=== PATIENT | female | born 1995 | race Caucasian/White ===

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

== ENCOUNTER 2017-02-19 09:35 | Emergency (ER) | payer OTHER ==
[2017-02-19 09:59] VITALS: BP 107/68
--- NOTE | 2017-03-01 16:47 | UC ---
Brianna Fitzgerald Nilda, scribed for Tayler Lancaster DO on 02/19/17 at 1212 . Throat Pain/Nasal Srikanth HPI - HPI Summary HPI Summary: This patient is a 21 year old F presenting to [facility] with a chief complaint of constant sore throat since yesterday at 1600. The patient rates the pain 3/10 in severity. Symptoms aggravated by deep inspiration and alleviated by so rose. She reports fever, chills, diffuse abdominal pain, nausea, general body aches, bilateral ear pain, headache, congestion, and rhinorrhea. Patient denies cough, V/D, urinary symptoms (frequency, discharge, dysuria), and dyspnea. She is a nonsmoker. - History of Current Complaint Chief Complaint: UCGeneralIllness Stated Complaint: SORE THROAT FEVER EAR PAIN Hx Obtained From: Patient Hx Last Menstrual Period: 12/28/16 Onset/Duration: Sudden Onset, Lasting Days - Yesterday, Still Present Severity: Mild Pain Intensity: 3 Pain Scale Used: 0-10 Numeric Cough: None Associated Signs & Symptoms: Positive: Nasal Discharge, Fever, Other - chills, diffuse abdominal pain, general body aches, bilateral ear pain, headache, congestion, and rhinorrhea. Patient denies cough, V/D, urinary symptoms ( frequency, discharge, dysuria), and dyspnea.. Negative: Vomiting Related History: Seasonal Allergies - Allergies/Home Medications Allergies/Adverse Reactions: Allergies Allergy/AdvReac Type Severity Reaction Status Date / Time Amoxicillin Allergy Unknown Hives Verified 02/26/17 10:04 Pineapple Allergy See Comment Verified 02/26/17 10:04 PMH/Surg Hx/FS Hx/Imm Hx Other History Of: Negative For: Anticoagulant Therapy - Surgical History Surgical History: None - Family History Known Family History: Positive: Diabetes Family History: NON CONTRIBUTORY - Social History Alcohol Use: None Substance Use Type: None Smoking Status (MU): Never Smoked Tobacco Have You Smoked in the Last Year: No - Immunization History Most Recent Influenza Vaccination: 2015/2015 season Most Recent Pneumonia Vaccination: not indicated Vaccination Up to Date: Yes Review of Systems Constitutional: Fever, Chills ENT: Sore Throat, Ear Ache, Nasal Discharge, Sinus Congestion Respiratory: Other - negative dyspnea, cough Gastrointestinal: Abdominal Pain, Nausea, Other - negative vomiting and diarrhea Genitourinary: Negative, Other - negative urinary symptoms (frequency, abnormal discharge, dysuria) Musculoskeletal: Myalgia Neurological: Headache All Other Systems Reviewed And Are Negative: Yes Physical Exam Triage Information Reviewed: Yes Appearance: Well-Appearing, No Pain Distress, Well-Nourished Vital Signs: Initial Vital Signs Temp 97.7 F 02/19/17 09:51 Pulse 100 02/19/17 09:51 Resp 20 02/19/17 09:51 BP 107/68 02/19/17 09:51 Pulse Ox 100 02/19/17 09:51 Vital Signs Reviewed: Yes Eyes: Positive: Conjunctiva Clear. Negative: Discharge ENT: Positive: Hearing grossly normal, Pharyngeal erythema, Tonsillar swelling - mild, Other: - pale boggy nasal mucosa, serous fluid noted behind TM but TM is otherwise noted; suborbital congestion. Negative: Tonsillar exudate, Trismus , Muffled/hoarse voice Neck exam: Normal Neck: Positive: Supple Respiratory: Positive: Lungs clear, Normal breath sounds, No respiratory distress, No accessory muscle use Cardiovascular: Positive: RRR, No Murmur Musculoskeletal Exam: Normal Neurological: Positive: Alert, Muscle Tone Normal Psychological Exam: Normal Psychological: Positive: Age Appropriate Behavior Skin Exam: Normal Skin: Positive: Other - Warm, Dry, Normal Color Throat Pain/Nasal Course/Dx - Course Course Of Treatment: This patient is a 21 year old F presenting to [facility] with a chief complaint of constant sore throat since yesterday at 1600. The patient rates the pain 3/10 in severity. Symptoms aggravated by deep inspiration and alleviated by so rose. She reports fever, chills, diffuse abdominal pain, nausea, general body aches, bilateral ear pain, headache, congestion, and rhinorrhea. Patient denies cough, V/D, urinary symptoms (frequency, discharge, dysuria), and dyspnea. She is a nonsmoker. Patients medication reviewed this visit. Group A Strep Rapid = negative. Patient is stable and will be discharged with a diagnoses of serous otitis media and pharyngitis. She was given instructions to use Netti Pot and follow up with PCP if necessary. - Differential Dx/Diagnosis Provider Diagnoses: Serous Otitis Media and Pharyngitis Discharge - Discharge Plan Condition: Stable Disposition: HOME Patient Education Materials: Pharyngitis (ED), Serous Otitis Media (ED) Referrals: Lori Paz MD [Primary Care Provider] - If Needed Additional Instructions: TRY USING THE NETTI POT IN THE MORNINGS DISCUSSED. YOU MUST ALWAYS USE CLEAN WATER. The documentation as recorded by the Brianna cordova Nilda accurately reflects the service I personally performed and the decisions made by me, Tayler Lancaster DO.
== END 2017-02-19 12:20 | disposition home or self-care (01) ==
LOC: UCEAST 09:35
DX: J02.9 Acute pharyngitis, unspecified (principal); H66.93 Otitis media, unspecified, bilateral; R09.81 Nasal congestion; R50.9 Fever, unspecified; R10.84 Generalized abdominal pain; M79.1 Myalgia; R51 Headache; Z88.1 Allergy status to other antibiotic agents
CPT/HCPCS: 87651; 99212; G0463

== ENCOUNTER 2017-02-26 09:57 | Emergency (ER) | payer OTHER ==
[2017-02-26 10:04] VITALS: BP 114/58
--- NOTE | 2017-02-26 10:35 | UC ---
Patricia Fitzgerald Rebecca, scribed for Ara Jeronimo MD on 02/26/17 at 1023 . Throat Pain/Nasal Srikanth HPI - HPI Summary HPI Summary: Pt is a 21 y/o F who presents to [facility] c/o sore throat. Pain is currently moderate, ranked 6/10 and characterized as burning. Has been treating with cough drops and gargling and she has not taken anything for pain. Sx aggravated by swallowing and PO intake, alleviated by nothing. Additionally c/o ear pain, cough and nasal congestion. Reports that her cough produces what "tastes like infection." Denies fever, SALAZAR and sinus tenderness. Pt was evaluated on 02/19 for the same sx with a negative strep and was not given Abx. There are no new sx since she was last seen. - History of Current Complaint Chief Complaint: UCRespiratory Stated Complaint: THROAT PAIN Time Seen by Provider: 02/26/17 10:16 Hx Obtained From: Patient Hx Last Menstrual Period: nexplanon Onset/Duration: Still Present Severity: Moderate Pain Intensity: 6 Pain Scale Used: 0-10 Numeric Cough: Other: - "tastes like infection" Associated Signs & Symptoms: Positive: Other - Ear pain, cough and nasal congestion. Negative: Fever - Allergies/Home Medications Allergies/Adverse Reactions: Allergies Allergy/AdvReac Type Severity Reaction Status Date / Time Amoxicillin Allergy Unknown Hives Verified 02/26/17 10:04 Pineapple Allergy See Comment Verified 02/26/17 10:04 PMH/Surg Hx/FS Hx/Imm Hx - Additional Past Medical History Additional PMH: NEGATIVE PMHx: COPD, HTN, DM, Thyroid Disease Previously Healthy: Yes Psychological History: Anxiety Other History Of: Negative For: Anticoagulant Therapy - Surgical History Surgical History: None - Family History Known Family History: Positive: Diabetes, Respiratory Disease - asthma (sister) - Social History Occupation: Unemployed Lives: With Family Alcohol Use: None Substance Use Type: None Smoking Status (MU): Never Smoked Tobacco Have You Smoked in the Last Year: No - Immunization History Most Recent Influenza Vaccination: 2014/2015 season Most Recent Pneumonia Vaccination: not indicated Vaccination Up to Date: Yes Review of Systems Constitutional: Negative Skin: Negative Eyes: Negative ENT: Sore Throat, Ear Ache, Sinus Congestion Respiratory: Cough Cardiovascular: Negative Gastrointestinal: Negative Genitourinary: Negative, Other - nexplanon for contraception with weight gain as a side effect. Motor: Negative Neurovascular: Negative Musculoskeletal: Negative Neurological: Negative Psychological: Negative All Other Systems Reviewed And Are Negative: Yes - Comments Additional Review of Systems Comments: NEGATIVE: Fever, SALAZAR and sinus tenderness Physical Exam Triage Information Reviewed: Yes Appearance: Well-Appearing - mildly congested., Pain Distress - mild, Obese Vital Signs: Initial Vital Signs Temp 97.6 F 02/26/17 10:01 Pulse 78 02/26/17 10:01 Resp 16 02/26/17 10:01 BP 114/58 02/26/17 10:01 Pulse Ox 100 02/26/17 10:01 Vital Signs Reviewed: Yes Eyes: Positive: Conjunctiva Clear ENT: Positive: Pharyngeal erythema, TMs normal. Negative: Tonsillar swelling, Tonsillar exudate Dental Exam: Normal Neck: Positive: Supple, Nontender, No Lymphadenopathy Respiratory: Positive: Lungs clear, Normal breath sounds Cardiovascular: Positive: RRR, No Murmur Musculoskeletal Exam: Normal Neurological Exam: Normal Psychological Exam: Normal Skin Exam: Normal Throat Pain/Nasal Course/Dx - Course Course Of Treatment: pharyngitis--no evidence of bacterial infection. Prednisone given for symptom control. Assessment/Plan: Pt medications reviewed. - Differential Dx/Diagnosis Differential Diagnosis/HQI/PQRI: Laryngitis, Pharyngitis, Sinusitis, Tonsillitis , URI Provider Diagnoses: pharyngitis Discharge - Discharge Plan Condition: Stable Disposition: HOME Prescriptions: predniSONE TAB* [Deltasone TAB*] 20 mg PO BID #10 tab Patient Education Materials: Pharyngitis (ED) Referrals: Lori Paz MD [Primary Care Provider] - Additional Instructions: Clinically, there is no evidence of bacterial infection. Prednisone will help to relieve the swelling and drainage; take one tablet twice daily with food for 5 days. You can use ibuprofen 600mg up to 3 times daily to help with pain, stopping if it is upsetting your stomach. The documentation as recorded by the Patricia cordova Rebecca accurately reflects the service I personally performed and the decisions made by me, Ara Jeronimo MD.
== END 2017-02-26 10:32 | disposition home or self-care (01) ==
LOC: UCEAST 09:57
DX: J02.9 Acute pharyngitis, unspecified (principal); F41.9 Anxiety disorder, unspecified; Z88.3 Allergy status to other anti-infective agents
CPT/HCPCS: 99212; G0463

== ENCOUNTER 2017-05-12 21:56 | Emergency (ER) | payer OTHER ==
[2017-05-12 22:30] LABS: ABS Basophils 0.1 10^3/ul (0-0.2); ABS Eosinophils 0.2 10^3/ul (0-0.6); ABS Lymphocytes 2.8 10^3/ul (1.0-4.8); ABS Monocytes 0.6 10^3/ul (0-0.8); ABS Neutrophils 6.4 10^3/ul (1.5-7.7); ABS Nucleated RBC 0 10^3/ul; Eosinophil % 2.3 % (0-6); Hematocrit 37 % (35-47); Hemoglobin 11.9 g/dl (12.0-16.0); Lymphocyte % 27.6 % (25-47); Mean Corpuscular HGB Conc 32 g/dl (31-36); Mean Corpuscular Hemoglobin 23 pg (27-31); Mean Platelet Volume 8 um3 (7.4-10.4); Nucleated Red Blood Cells % 0; Platelet Count 344 10^3/ul (150-450); Red Blood Count 5.11 10^6/ul (4.0-5.4); Red Cell Distribution Width 19 % (10.5-15)
[2017-05-12 22:35] LABS: Mean Corpuscular Volume 72 fL (80-97)
[2017-05-12 22:45] LABS: EGFR Non-African American 101.1 (>60)
[2017-05-12] MEDS ORDERED: NS 0.9% 1000 ML* 1,000 ML IV ONE (22:53)
[2017-05-13 01:28] LABS: Urine Appearance Cloudy; Urine Blood 3+ (Negative); Urine Color Yellow; Urine Ketones Negative (Negative); Urine Protein 1+(30 mg/dL) (Negative); Urine Urobilinogen Negative (Negative)
--- NOTE | 2017-05-13 01:55 | RAD ---
Indication: RIGHT upper quadrant pain. Comparison: October 06, 2016 CT and November 11, 2015 ultrasound. Technique: RIGHT upper quadrant ultrasound. Report: Appropriate direction flow documented in the portal and hepatic veins. 14.7 cm liver is minimally increased in echogenicity. Negative for focal hepatic lesions. Negative for intrahepatic biliary dilatation. 2.9 mm common bile duct. Adequately distended gallbladder with upper normal 2.8 mm wall is without pathologic finding. Negative for sonographic Rascon's sign. The pancreatic tail is partially obscured due to bowel gas with the visualized pancreas unremarkable. Negative for ascites. 11.2 x 4.6 x 5.6 cm RIGHT kidney is unremarkable. IMPRESSION: 1. Minimally increased hepatic echogenicity consistent with mild fatty infiltration. 2. Negative for gallbladder pathology.
--- NOTE | 2017-05-13 02:00 | RAD ---
Indication: RIGHT pelvic pain. Comparison: October 06, 2016 CT. Technique: Transvaginal pelvic ultrasound. Report: Unremarkable 7.1 x 3.4 x 5.6 cm anteverted uterus with 3.9 mm endometrium. Negative for free pelvic fluid. 3.0 x 1.4 x 4.4 cm RIGHT ovary with documented vascular flow is remarkable for 2 low suspicion partially decompressed cysts measuring up to 0.7 x 0.5 x 0.6 and 0.8 x 0.3 x 0.8 cm most consistent with involuting follicular or hemorrhagic cyst. 3.2 x 1.8 x 2.1 cm LEFT ovary with documented vascular flow is unremarkable. No visualized extra ovarian adnexal region lesions evident. IMPRESSION: No suspicious sonographic abnormality evident. 2 very small involuting follicular or hemorrhagic cyst of the RIGHT ovary noted.
--- NOTE | 2017-05-13 02:32 | ED ---
Abdominal Pain/Female - HPI Summary HPI Summary: 21F presents with chest pain today. it started this morning in the center of her chest and radiated up to her left shoulder. She denies any SOB with this. She states pain was sharp and nothing made it better or worst. She is on nexplanon for control. no history of HTN or DM. no cardiac family history. she does not smoke. two hours prior to arrival chest pain resolved but then develop abdominal pain in pelvic area. She states this is similar to pain had two months ago and nothing was found wrong then. She denies any vaginal discharge. She is currently finishing her period. She denies any dysria, flank pain, urgency, or frequency. the abdominal pain does radiate to lower back. She denies any injury. She denies any loss of bowel or bladder or saddle anaesthesia. She denies any nausea, vomiting, or diarrhea. - History of Current Complaint Chief Complaint: EDAbdPain Stated Complaint: CHEST,ABD & BACK PAIN Time Seen by Provider: 05/12/17 22:06 Hx Last Menstrual Period: nexplanon Pain Intensity: 6 Allergies/Adverse Reactions: Allergies Allergy/AdvReac Type Severity Reaction Status Date / Time Amoxicillin Allergy Unknown Hives Verified 02/26/17 10:04 Pineapple Allergy See Comment Verified 02/26/17 10:04 PMH/Surg Hx/FS Hx/Imm Hx Endocrine/Hematology History: Denies: Hx Anticoagulant Therapy, Hx Blood Disorders, Hx Diabetes, Hx Thyroid Disease Cardiovascular History: Denies: Hx Hypertension Respiratory History: Denies: Hx Asthma, Hx Chronic Obstructive Pulmonary Disease (COPD) GI History: Reports: Hx Gall Bladder Disease - questionable Denies: Hx Crohn's Disease, Hx Diverticulosis, Hx Gastroesophageal Reflux Disease, Hx Hiatal Hernia, Hx Irritable Bowel, Hx Ulcer History: Denies: Hx Kidney Infection, Hx Kidney Stones Musculoskeletal History: Denies: Hx Back Problems Psychiatric History: Reports: Hx Anxiety - panic attacks Infectious Disease History: No Infectious Disease History: Denies: Hx Clostridium Difficile, Hx Hepatitis, Hx Human Immunodeficiency Virus (HIV), Hx of Known/Suspected MRSA, Hx Shingles, Hx Tuberculosis, Hx Known/ Suspected VRE, Hx Known/Suspected VRSA, History Other Infectious Disease, Traveled Outside the [place] in Last 30 Days - Family History Known Family History: Positive: None, Diabetes, Respiratory Disease - asthma ( sister) Negative: Cardiac Disease Family History: NON CONTRIBUTORY - Social History Alcohol Use: None Hx Substance Use: No Substance Use Type: Reports: None Hx Tobacco Use: No Smoking Status (MU): Never Smoked Tobacco Have You Smoked in the Last Year: No Review of Systems Negative: Fever Positive: Chest Pain Negative: Shortness Of Breath Positive: Abdominal Pain. Negative: Vomiting, Diarrhea, Nausea All Other Systems Reviewed And Are Negative: Yes Physical Exam Triage Information Reviewed: Yes Vital Signs On Initial Exam: Initial Vitals Temp Pulse Resp BP Pulse Ox 98 F 82 18 133/70 99 05/12/17 21:59 05/12/17 21:59 05/12/17 21:59 05/12/17 21:59 05/12/17 21:59 Vital Signs Reviewed: Yes Appearance: Positive: Well-Appearing Skin: Positive: Warm, Dry Head/Face: Positive: Normal Head/Face Inspection Eyes: Positive: Normal, Conjunctiva Clear Respiratory/Lung Sounds: Positive: Clear to Auscultation, Breath Sounds Present , Other - tenderness sternum Cardiovascular: Positive: Normal, RRR Abdomen Description: Positive: Soft, Other: - tenderness greatest suprapubic, mild RLQ and RUQ. neg obturator,. Negative: CVA Tenderness (R), CVA Tenderness (L) Bowel Sounds: Positive: Present Musculoskeletal: Positive: Strength/ROM Intact - tenderness lower back right Neurological: Positive: Normal Psychiatric: Positive: Normal - James Coma Scale Coma Scale Total: 15 Diagnostics - Vital Signs Vital Signs Temp Pulse Resp BP Pulse Ox 05/13/17 02:10 74 99 05/13/17 01:00 82 14 93/56 98 05/13/17 00:30 81 16 106/71 99 05/13/17 00:01 84 16 102/82 98 05/13/17 00:00 85 19 98 05/12/17 23:36 93 15 97 05/12/17 22:09 84 18 98 05/12/17 22:04 86 16 98 05/12/17 22:03 133/70 05/12/17 21:59 98 F 82 18 133/70 99 - Laboratory Lab Results: Lab Results 05/12/17 05/12/17 05/12/17 Range/Units 22:16 22:16 22:16 WBC 10.0 (3.5-10.8) 10^3/ul RBC 5.11 (4.0-5.4) 10^6/ul Hgb 11.9 L (12.0-16.0) g/dl Hct 37 (35-47) % MCV 72 L (80-97) fL MCH 23 L (27-31) pg MCHC 32 (31-36) g/dl RDW 19 H (10.5-15) % Plt Count 344 (150-450) 10^3/ul MPV 8 (7.4-10.4) um3 Neut % (Auto) 63.6 (38-83) % Lymph % (Auto) 27.6 (25-47) % [place] % (Auto) 6.0 (1-9) % Eos % (Auto) 2.3 (0-6) % Baso % (Auto) 0.5 (0-2) % Absolute Neuts (auto) 6.4 (1.5-7.7) 10^3/ul Absolute Lymphs (auto) 2.8 (1.0-4.8) 10^3/ul Absolute Monos (auto) 0.6 (0-0.8) 10^3/ul Absolute Eos (auto) 0.2 (0-0.6) 10^3/ul Absolute Basos (auto) 0.1 (0-0.2) 10^3/ul Absolute Nucleated RBC 0 10^3/ul Nucleated RBC % 0 D-Dimer, Quantitative < 200 (Less Than 230) ng/mL Sodium 138 (133-145) mmol/L Potassium 3.9 (3.5-5.0) mmol/L Chloride 103 (101-111) mmol/L Carbon Dioxide 28 (22-32) mmol/L Anion Gap 7 (2-11) mmol/L BUN 11 (6-24) mg/dL Creatinine 0.74 (0.51-0.95) mg/dL Est GFR ( Amer) 130.0 (>60) Est GFR (Non-Af Amer) 101.1 (>60) BUN/Creatinine Ratio 14.9 (8-20) Glucose 107 H (70-100) mg/dL Calcium 9.8 (8.6-10.3) mg/dL Total Bilirubin 0.30 (0.2-1.0) mg/dL AST 11 L (13-39) U/L ALT 13 (7-52) U/L Alkaline Phosphatase 81 (34-104) U/L Troponin I 0.06 H* (<0.04) ng/mL C-React Prot High Sens 2.37 mg/L Total Protein 7.3 (6.4-8.9) g/dL Albumin 4.3 (3.2-5.2) g/dL Globulin 3.0 (2-4) g/dL Albumin/Globulin Ratio 1.4 (1-3) Lipase < 10 L (11.0-82.0) U/L Beta HCG, Quant mIU/mL Urine Color Urine Appearance Urine pH (5-9) Ur Specific [place] (1.010-1.030) Urine Protein (Negative) Urine Ketones (Negative) Urine Blood (Negative) Urine Nitrate (Negative) Urine Bilirubin (Negative) Urine Urobilinogen (Negative) Ur Leukocyte Esterase (Negative) Urine WBC (Auto) (Absent) Urine RBC (Auto) (Absent) Ur Squamous Epith Cells (Absent) Urine Bacteria (Absent) Urine Glucose (Negative) Urine Opiates Screen (None Detect) Ur Barbiturates Screen (None Detect) Ur Phencyclidine Scrn (None Detect) Ur Amphetamines Screen (None Detect) U Benzodiazepines Scrn (None Detect) Urine Cocaine Screen (None Detect) U Cannabinoids Screen (None Detect) 05/12/17 05/13/17 05/13/17 Range/Units 23:32 01:13 01:13 WBC (3.5-10.8) 10^3/ul RBC (4.0-5.4) 10^6/ul Hgb (12.0-16.0) g/dl Hct (35-47) % MCV (80-97) fL MCH (27-31) pg MCHC (31-36) g/dl RDW (10.5-15) % Plt Count (150-450) 10^3/ul MPV (7.4-10.4) um3 Neut % (Auto) (38-83) % Lymph % (Auto) (25-47) % [place] % (Auto) (1-9) % Eos % (Auto) (0-6) % Baso % (Auto) (0-2) % Absolute Neuts (auto) (1.5-7.7) 10^3/ul Absolute Lymphs (auto) (1.0-4.8) 10^3/ul Absolute Monos (auto) (0-0.8) 10^3/ul Absolute Eos (auto) (0-0.6) 10^3/ul Absolute Basos (auto) (0-0.2) 10^3/ul Absolute Nucleated RBC 10^3/ul Nucleated RBC % D-Dimer, Quantitative (Less Than 230) ng/mL Sodium (133-145) mmol/L Potassium (3.5-5.0) mmol/L Chloride (101-111) mmol/L Carbon Dioxide (22-32) mmol/L Anion Gap (2-11) mmol/L BUN (6-24) mg/dL Creatinine (0.51-0.95) mg/dL Est GFR ( Amer) (>60) Est GFR (Non-Af Amer) (>60) BUN/Creatinine Ratio (8-20) Glucose (70-100) mg/dL Calcium (8.6-10.3) mg/dL Total Bilirubin (0.2-1.0) mg/dL AST (13-39) U/L ALT (7-52) U/L Alkaline Phosphatase (34-104) U/L Troponin I 0.00 (<0.04) ng/mL C-React Prot High Sens mg/L Total Protein (6.4-8.9) g/dL Albumin (3.2-5.2) g/dL Globulin (2-4) g/dL Albumin/Globulin Ratio (1-3) Lipase (11.0-82.0) U/L Beta HCG, Quant < 0.60 mIU/mL Urine Color Yellow Urine Appearance Cloudy Urine pH 5.0 (5-9) Ur Specific [place] 1.030 (1.010-1.030) Urine Protein 1+(30 mg/dl) H (Negative) Urine Ketones Negative (Negative) Urine Blood 3+ H (Negative) Urine Nitrate Negative (Negative) Urine Bilirubin Negative (Negative) Urine Urobilinogen Negative (Negative) Ur Leukocyte Esterase 1+ H (Negative) Urine WBC (Auto) 1+(6-10/hpf) H (Absent) Urine RBC (Auto) 1+(3-5/hpf) H (Absent) Ur Squamous Epith Cells Present H (Absent) Urine Bacteria Absent (Absent) Urine Glucose Negative (Negative) Urine Opiates Screen None detected (None Detect) Ur Barbiturates Screen None detected (None Detect) Ur Phencyclidine Scrn None detected (None Detect) Ur Amphetamines Screen None detected (None Detect) U Benzodiazepines Scrn None detected (None Detect) Urine Cocaine Screen None detected (None Detect) U Cannabinoids Screen None detected (None Detect) Result Diagrams: 05/12/17 22:16 05/12/17 22:16 Lab Statement: Any lab studies that have been ordered have been reviewed, and results considered in the medical decision making process. - Radiology chest Xray Interpretation: No Acute Changes Radiology Interpretation Completed By: ED Physician - Ultrasound No standard instances Ultrasound Interpretation: Positive (See Comments) - gallbladder: neg IMPRESSION : No suspicious sonographic abnormality evident. 2 very small involuting follicular or hemorrhagic cyst of the RIGHT ovary noted. Ultrasound Interpretation Completed By: Radiologist - EKG No standard instances Cardiac Rate: NL EKG Rhythm: Sinus Rhythm ST Segment: Normal EKG Interpretation: normal sinus rhythm Abdominal Pain Fem Course/Dx - Course Course Of Treatment: 21F presents with chest pain today. it started this morning in the center of her chest and radiated up to her left shoulder. She denies any SOB with this. She states pain was sharp and nothing made it better or worst. She is on nexplanon for control. no history of HTN or DM. no cardiac family history. she does not smoke. two hours prior to arrival chest pain resolved but then develop abdominal pain in pelvic area. She states this is similar to pain had two months ago and nothing was found wrong then. She denies any vaginal discharge. She is currently finishing her period. She denies any dysria, flank pain, urgency, or frequency. the abdominal pain does radiate to lower back. She denies any injury. She denies any loss of bowel or bladder or saddle anaesthesia. on exam tenderness suprapubic region and RLQ, no rebound. neg obturator. reproducible sternal chest pain. ekg normal first troponin was elevated so discussed with dr sheriff and 2 and 3rd normal so likely falsely elevated. crp and wbc normal so unlikely appendicits. transvaginal u/s shows two small cyst which could be causing pain. patient refused pelvic. urine indeterminated for uti so will wait for culture as is having no symptoms now. before discharge abdomen soft nontender. patient understand and agrees with plan. - Diagnoses Differential Diagnosis: Positive: Appendicitis, Gall Bladder Disease, Ovarian Cyst, Urinary Tract Infection Provider Diagnoses: Abdominal pain, Chest pain, Ovarian cyst Discharge - Discharge Plan Condition: Good Disposition: HOME Patient Education Materials: Ovarian Cyst (ED) Referrals: Lori Paz MD [Primary Care Provider] - Additional Instructions: Follow up with primary about chest pain and abdominal pain in 5 days Take Tylenol or ibuprofen every 6 hours Return to ED if develop any new or worsening symptoms
[2017-05-13 02:54] VITALS: BP 106/71
--- NOTE | 2017-05-13 07:52 | RAD ---
INDICATION: Chest pain. COMPARISON: There are no prior studies available for comparison. TECHNIQUE: Dual-energy PA and lateral views of the chest were obtained. FINDINGS: The heart is within normal limits in size. Mediastinal and hilar contours appear within normal limits. The lungs are clear. No pleural effusion or pneumothorax is seen. IMPRESSION: NO EVIDENCE FOR ACTIVE CARDIOPULMONARY DISEASE.
== END 2017-05-13 02:55 | disposition home or self-care (01) ==
LOC: ED 21:56
DX: N83.209 Unspecified ovarian cyst, unspecified side (principal); R10.9 Unspecified abdominal pain; R07.9 Chest pain, unspecified
CPT/HCPCS: 36415; 71046; 76705; 76830; 80053; 80307; 81003; 81015; 83690; 84484; 84702; 85025; 85379; 86141; 87086; 93005; 99283

== ENCOUNTER → 2017-08-09 08:18 | Emergency (ER) | payer OTHER ==
--- NOTE | 2017-08-09 09:00 | RAD ---
HISTORY: Altered mental status COMPARISONS: None TECHNIQUE: Multiple contiguous axial CT scans were obtained of the head without intravenous contrast. FINDINGS: HEMORRHAGE/INFARCT: There is no hemorrhage or acute infarct. MASSES/SHIFT: There is no mass or shift. EXTRA-AXIAL SPACES: There are no extra-axial fluid collections. SULCI AND VENTRICLES: The sulci and ventricles are normal in size and position for the patient's stated age. CEREBRUM: There are no focal parenchymal abnormalities. BRAINSTEM: There are no focal parenchymal abnormalities. CEREBELLUM: There are no focal parenchymal abnormalities. VESSELS: The vessels are grossly normal. PARANASAL SINUSES: The paranasal sinuses are clear. ORBITS: The orbits are unremarkable. BONES AND SOFT TISSUE: No bone or soft tissue abnormalities are noted. OTHER: None IMPRESSION: NO ACUTE INTRACRANIAL PATHOLOGY.
--- NOTE | 2017-08-09 09:11 | RAD ---
HISTORY: Altered mental status COMPARISONS: May 12, 2017 VIEWS: 1: frontal portable view of the chest at 8:50 AM FINDINGS: LINES AND TUBES: None. CARDIOMEDIASTINAL SILHOUETTE: The cardiomediastinal silhouette is normal for portable technique. PLEURA: The costophrenic angles are sharp. No pleural abnormalities are noted. LUNG PARENCHYMA: The lungs are clear. ABDOMEN: The upper abdomen is clear. There is no subphrenic gas. BONES AND SOFT TISSUES: No bone or soft tissue abnormalities are noted. IMPRESSION: NO ACTIVE CARDIOPULMONARY DISEASE.
[2017-08-09 09:25] LABS: ABS Basophils 0 10^3/ul (0-0.2); ABS Eosinophils 0.1 10^3/ul (0-0.6); ABS Lymphocytes 1.8 10^3/ul (1.0-4.8); ABS Monocytes 0.5 10^3/ul (0-0.8); ABS Neutrophils 4.8 10^3/ul (1.5-7.7); ABS Nucleated RBC 0 10^3/ul; Eosinophil % 1.9 % (0-6); Hematocrit 37 % (35-47); Hemoglobin 12.4 g/dl (12.0-16.0); Lymphocyte % 24.3 % (25-47); Mean Corpuscular HGB Conc 33 g/dl (31-36); Mean Corpuscular Hemoglobin 25 pg (27-31); Mean Corpuscular Volume 75 fL (80-97); Mean Platelet Volume 8.8 um3 (7.4-10.4); Nucleated Red Blood Cells % 0; Platelet Count 300 10^3/ul (150-450); Red Blood Count 4.96 10^6/ul (4.0-5.4); Red Cell Distribution Width 18 % (10.5-15); White Blood Count 7.2 10^3/ul (3.5-10.8)
[2017-08-09 09:33] LABS: Urine Appearance Cloudy; Urine Blood Negative (Negative); Urine Color Yellow; Urine Ketones Negative (Negative); Urine Protein 1+(30 mg/dL) (Negative); Urine Specific Gravity 1.024 (1.010-1.030); Urine Urobilinogen Negative (Negative)
[2017-08-09 09:39] LABS: EGFR Non-African American 119.5 (>60)
[2017-08-09 12:10] VITALS: BP 128/79
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
== END | disposition home or self-care (01) ==
LOC: ED 08:18
DX: F63.81 Intermittent explosive disorder (principal); F41.0 Panic disorder [episodic paroxysmal anxiety]; Z88.0 Allergy status to penicillin
CPT/HCPCS: 36415; 70450; 71045; 80053; 80307; 80320; 80329; 81003; 81015; 82550; 83735; 84443; 85025; 87086; 99284; G0480

== ENCOUNTER 2017-10-27 13:50 | Emergency (ER) | payer SELFPAY ==
[2017-10-27 14:23] VITALS: BP 120/73
--- NOTE | 2017-10-27 14:27 | UC ---
Back Pain HPI - HPI Summary HPI Summary: 21 yo female presents with right flank pain getting progressively worse over the last 2 weeks. Says the pain started near her bladder and RLQ and gradually progressed to her right flank alone. She denies dysuria, hematuria, frequency, SOB, chest pain, abdominal pain, n/v/d/c, or injury to her back. She has had a UTI in the past and says she never had any real symptoms at those time either. No hx of kidney stone - History of Current Complaint Chief Complaint: UCBackPain Stated Complaint: BACK PAIN Hx Obtained From: Patient Hx Last Menstrual Period: nexplanon Onset/Duration: Gradual Onset Timing: Constant Severity Initially: Mild Severity Currently: Moderate Pain Intensity: 7 Pain Scale Used: 0-10 Numeric - Allergies/Home Medications Allergies/Adverse Reactions: Allergies Allergy/AdvReac Type Severity Reaction Status Date / Time amoxicillin Allergy Hives Verified 10/27/17 14:15 pineapple Allergy See Comment Verified 10/27/17 14:15 Home Medications: Home Medications Etonogestrel [Nexplanon] 68 mg IMPLANT DAILY 10/27/17 [History Confirmed ] Naproxen Sodium [Aleve] 220 mg PO Q8HR PRN 10/27/17 [History Confirmed 10/27/17] PMH/Surg Hx/FS Hx/Imm Hx - Additional Past Medical History Additional PMH: Ovarian cysts Previously Healthy: Yes Other History Of: Negative For: Anticoagulant Therapy - Surgical History Surgical History: None - Family History Known Family History: Positive: None, Diabetes, Respiratory Disease - asthma ( sister) Negative: Cardiac Disease Family History: NON CONTRIBUTORY - Social History Occupation: Student Lives: With Family Alcohol Use: None Substance Use Type: None Smoking Status (MU): Never Smoked Tobacco Have You Smoked in the Last Year: No - Immunization History Most Recent Influenza Vaccination: 2014/2015 season Most Recent Pneumonia Vaccination: not indicated Vaccination Up to Date: Yes Review of Systems Constitutional: Negative Respiratory: Negative Cardiovascular: Negative Gastrointestinal: Negative Genitourinary: Negative Neurovascular: Negative Musculoskeletal: Other: - Right flank pain Neurological: Negative Psychological: Negative All Other Systems Reviewed And Are Negative: Yes Physical Exam - Summary Physical Exam Summary: GENERAL: NAD. WDWN. No pain distress. SKIN: No rashes, sores, lesions, or open wounds. NECK: Supple. FROM. Nontender. No lymphadenopathy. CHEST: CTAB. No r/r/w. No accessory muscle use. Breathing comfortably and in no distress. CV: RRR. Without m/r/g. Pulses intact. Brisk cap refill. ABDOMEN: Moderate right CVA tenderness. Soft. NTTP. No distention or guarding. No organomegaly. Bowel sounds present MSK: Spine FROM - mild right flank pain with flexion. B/L LEs FROM and 5/5 symmetric strength. NEURO: Alert. CN II-XII grossly intact. Sensations intact B/L LEs L3-S1. PSYCH: Age appropriate behavior. Triage Information Reviewed: Yes Vital Signs: Initial Vital Signs Temp 98.6 F 10/27/17 14:16 Pulse 82 10/27/17 14:16 Resp 16 10/27/17 14:16 BP 120/73 10/27/17 14:16 Pulse Ox 99 10/27/17 14:16 Laboratory Tests 10/27/17 14:42 POC Urine Color Yellow POC Urine Clarity Cloudy POC Urine pH 6.5 POC Ur Specif [place] 1.015 POC Urine Protein Negative POC Ur Glucose (UA) Negative POC Urine Ketones Negative POC Urine Blood Trace-intact A POC Urine Nitrite Negative POC Urine Bilirubin Negative POC Urine Urobilinogen 0.2 POC U Leukocyte Esteras 2+ A Back Pain Course/Dx - Course Course Of Treatment: Suspect UTI given UA results. Will treat with cipro and call with urine results. - Differential Dx/Diagnosis Provider Diagnoses: UTI Discharge - Sign-Out/Discharge Documenting (check all that apply): Discharge/Admit/Transfer - Discharge Plan Condition: Stable Disposition: HOME Prescriptions: Ciprofloxacin TAB* [Cipro 250 MG Tab*] 250 mg PO BID #14 tab Patient Education Materials: Urinary Tract Infection in Women (ED) Referrals: Lori Paz MD [Primary Care Provider] - Additional Instructions: If you develop a fever, shortness of breath, chest pain, new or worsening symptoms - please call your PCP or go to the ED. - Billing Disposition and Condition Condition: STABLE Disposition: Home
[2017-10-27] MEDS ORDERED: Ketorolac INJ* 30 MG/ML 1 ML VIAL IM ONE (14:48)
--- NOTE | 2017-10-29 19:38 | UC ---
- Progress Note Progress Note: 10/29/2017 Pt Dx w/ UTI Rx Ciprofloxacin PO x 7 days Urine culture: negative Call back patient and let her know the urine culture result. If feeling better she can stop ABx, otherwise continue taking ABx Ethel Fair PA-C Discharge - Sign-Out/Discharge Documenting (check all that apply): Discharge/Admit/Transfer - D/c home - Discharge Plan Condition: Stable Disposition: HOME Prescriptions: Ciprofloxacin TAB* [Cipro 250 MG Tab*] 250 mg PO BID #14 tab Patient Education Materials: Urinary Tract Infection in Women (ED) Referrals: Lori Paz MD [Primary Care Provider] - Additional Instructions: If you develop a fever, shortness of breath, chest pain, new or worsening symptoms - please call your PCP or go to the ED. - Billing Disposition and Condition Condition: STABLE Disposition: Home
== END 2017-10-27 15:01 | disposition home or self-care (01) ==
LOC: UCEAST 13:50
DX: N39.0 Urinary tract infection, site not specified (principal); Z87.440 Personal history of urinary (tract) infections; Z88.0 Allergy status to penicillin; Z83.3 Family history of diabetes mellitus; Z82.5 Family history of asthma and other chronic lower respiratory diseases
CPT/HCPCS: 81003; 87086; 96372; 99212; G0463; J1885

== ENCOUNTER 2017-12-07 00:40 | Emergency (ER) | payer SELFPAY ==
[2017-12-07] MEDS ORDERED: diPHENhydraMINE IV* 50 MG/ML 1 ml VIAL (BENADRYL) IV ONE (02:02)
[2017-12-07] MEDS ORDERED: NS 0.9% 1000 ML* 1,000 ML IV ONE (02:02)
[2017-12-07] MEDS ORDERED: PROCHLORPERAZINE INJ 5 MG/ML 2 ML VIAL IV ONE (02:03)
[2017-12-07 02:04] LABS: ABS Basophils 0.1 10^3/ul (0-0.2); ABS Eosinophils 0.2 10^3/ul (0-0.6); ABS Lymphocytes 2.1 10^3/ul (1.0-4.8); ABS Monocytes 0.6 10^3/ul (0-0.8); ABS Neutrophils 5.9 10^3/ul (1.5-7.7); ABS Nucleated RBC 0 10^3/ul; Eosinophil % 2.1 % (0-6); Hematocrit 40 % (35-47); Hemoglobin 13.2 g/dl (12.0-16.0); Lymphocyte % 23.7 % (25-47); Mean Corpuscular HGB Conc 33 g/dl (31-36); Mean Corpuscular Hemoglobin 26 pg (27-31); Mean Corpuscular Volume 78 fL (80-97); Mean Platelet Volume 8.8 um3 (7.4-10.4); Nucleated Red Blood Cells % 0.1; Platelet Count 259 10^3/ul (150-450); Red Blood Count 5.12 10^6/ul (4.00-5.40); Red Cell Distribution Width 17 % (10.5-15); White Blood Count 8.8 10^3/ul (3.5-10.8)
--- NOTE | 2017-12-07 02:09 | ED ---
Abdominal Pain/Female - HPI Summary HPI Summary: Patient presents with nausea 3 days and vomiting with acute, sharp abdominal pain starting today. She reports her pain is both in her right upper quadrant and right lower quadrant areas. Pain and nausea were triggered by eating earlier today however she admits she did not vomit until an hour later. Denies diarrhea. She denies diarrhea, fever, dysuria, vaginal irritation or discharge, flank pain. Feels "dehydrated". Reports she came in by ambulance because she felt like she was going to pass out at home - lightheaded with standing. Her last period was 2 weeks ago. She has an Implanon in her left arm which she's had for 2 years. Admits she has some level of spotting intermittently since Implanon was placed. She does have a history of ovarian cysts - pain today does not feel the same. Had intercouse last night which was not painful. - History of Current Complaint Chief Complaint: EDAbdPain Stated Complaint: ABD PAIN Time Seen by Provider: 12/07/17 01:18 Hx Obtained From: Patient Hx Last Menstrual Period: nexplanon Pain Intensity: 7 Allergies/Adverse Reactions: Allergies Allergy/AdvReac Type Severity Reaction Status Date / Time amoxicillin Allergy Hives Verified 10/27/17 14:15 pineapple Allergy See Comment Verified 10/27/17 14:15 PMH/Surg Hx/FS Hx/Imm Hx Previously Healthy: Yes Endocrine/Hematology History: Denies: Hx Anticoagulant Therapy, Hx Blood Disorders, Hx Diabetes, Hx Thyroid Disease Cardiovascular History: Denies: Hx Hypertension Respiratory History: Denies: Hx Asthma, Hx Chronic Obstructive Pulmonary Disease (COPD) GI History: Reports: Hx Gall Bladder Disease - questionable Denies: Hx Crohn's Disease, Hx Diverticulosis, Hx Gastroesophageal Reflux Disease, Hx Hiatal Hernia, Hx Irritable Bowel, Hx Ulcer History: Reports: Other Problems/Disorders - ovarian cyst Denies: Hx Kidney Infection, Hx Kidney Stones Musculoskeletal History: Denies: Hx Back Problems Psychiatric History: Reports: Hx Anxiety - panic attacks, Hx of Violent Episodes Against Others Denies: Hx Eating Disorder - Immunization History Immunizations Up to Date: Yes Infectious Disease History: No Infectious Disease History: Denies: Hx Clostridium Difficile, Hx Hepatitis, Hx Human Immunodeficiency Virus (HIV), Hx of Known/Suspected MRSA, Hx Shingles, Hx Tuberculosis, Hx Known/ Suspected VRE, Hx Known/Suspected VRSA, History Other Infectious Disease, Traveled Outside the [place] in Last 30 Days - Family History Known Family History: Positive: Diabetes, Respiratory Disease - asthma (sister) Negative: Cardiac Disease - Social History Occupation: Employed Full-time - [employer] Lives: With Family Alcohol Use: Rare Substance Use Type: Reports: Marijuana Hx Tobacco Use: No Smoking Status (MU): Never Smoked Tobacco Have You Smoked in the Last Year: No Review of Systems Positive: Chills. Negative: Fever, Fatigue Negative: Sore Throat Cardiovascular: Negative Respiratory: Negative Positive: Abdominal Pain, Vomiting, Nausea. Negative: Diarrhea Genitourinary: Negative Negative: burning, dysuria, discharge, frequency, flank pain, hematuria, incontinence, pain, urgency Musculoskeletal: Negative Skin: Negative Positive: Headache - "Rt sided migraine" Psychological: Normal All Other Systems Reviewed And Are Negative: Yes Physical Exam Triage Information Reviewed: Yes Vital Signs On Initial Exam: Initial Vitals Temp Pulse Resp BP Pulse Ox 98.3 F 81 18 115/73 99 12/07/17 00:51 12/07/17 00:51 12/07/17 00:51 12/07/17 00:51 12/07/17 00:51 Vital Signs Reviewed: Yes Appearance: Positive: Well-Appearing, No Pain Distress, Well-Nourished Skin: Positive: Warm, Skin Color Reflects Adequate Perfusion, Dry - no ecchymosis over ab Head/Face: Positive: Normal Head/Face Inspection Eyes: Positive: EOMI, Conjunctiva Clear - anicteric sclera ENT: Positive: Hearing grossly normal, Pharynx normal - mucosa moist Respiratory/Lung Sounds: Positive: Breath Sounds Present. Negative: Rales, Rhonchi, Wheezes Cardiovascular: Positive: Normal, RRR, S1, S2. Negative: Murmur, Rub Abdomen Description: Positive: No Organomegaly, Soft, Other: - acute RLQ TTP - no rebounding; mild RUQ. Negative: CVA Tenderness (R), CVA Tenderness (L), Distended, Guarding, Hernia @ Bowel Sounds: Positive: Present Pelvic Exam: Positive: External Exam Normal, Speculum Exam Normal, Bimanual Exam Normal, No Cerv. Motion Tender, No Masses, Discharge - blood tinged mucous d/c, Other. Negative: Lesions, Mass Musculoskeletal: Positive: Normal, Strength/ROM Intact Neurological: Positive: Normal, Sensory/Motor Intact, Alert, Oriented to Person Place, Time, CN Intact II-III Psychiatric: Positive: Normal Diagnostics - Vital Signs Vital Signs Temp Pulse Resp BP Pulse Ox 12/07/17 00:51 98.3 F 81 18 115/73 99 - Laboratory Lab Results: Lab Results 12/07/17 Range/Units 01:31 Lactic Acid 0.8 (0.5-2.0) mmol/L Result Diagrams: 12/07/17 01:31 12/07/17 01:31 Lab Statement: Any lab studies that have been ordered have been reviewed, and results considered in the medical decision making process. Abdominal Pain Fem Course/Dx - Course Course Of Treatment: Patient presents with 3 days of nausea and abrupt onset of right lower quadrant pain with vomiting today. She reports is associated with eating. Also admits to some right upper quadrant pain however she is primarily tender in the right lower quadrant, mild right upper quadrant pain. Currently her nausea is controlled. Does feel she could be dehydrated with her symptoms of lightheadedness. Also reports a right-sided "migraine" headache. Discussed workup for right lower quadrant pain with patient and administration of IV fluids plus Compazine to reduce lightheadedness and headache. Labs thus far are unremarkable for acute infection or inflammation. With her physical exam and history of present illness, CT abdomen and pelvis was ordered. If necessary , ultrasound may be ordered to better assess for ovarian torsion however pelvic exam was unremarkable. Vitals up in stable. Patient signed out to Dr. Chapman and stable condition with pain controlled. - Diagnoses Provider Diagnoses: Right lower quadrant pain Discharge - Sign-Out/Discharge Documenting (check all that apply): Sign-Out Patient Signing out patient TO: Lester Chapman - Discharge Plan Condition: Stable - Billing Disposition and Condition Condition: STABLE
[2017-12-07] MEDS ORDERED: diPHENhydraMINE IV* 50 MG/ML 1 ml VIAL (BENADRYL) ONE (03:29)
[2017-12-07 03:50] LABS: Urine Appearance Cloudy; Urine Blood 2+ (Negative); Urine Color Yellow; Urine Ketones Negative (Negative); Urine Protein Negative (Negative); Urine Red Blood Cell 3+(>10/hpf) (Absent); Urine Specific Gravity 1.009 (1.010-1.030); Urine Urobilinogen Negative (Negative); Urine White Blood Cell 1+(6-10/hpf) (Absent)
[2017-12-07] MEDS ORDERED: Iohexol 300* (CONTRAST) 10 ML SDV IV ONE (05:03)
--- NOTE | 2017-12-07 07:15 | ED ---
Progress - Progress Note Progress Note: Received sign out from Dr. Chapman, awaiting Abd/Pelvlis CT. - Results/Orders Results/Orders: Abd Pelvis CT: 1. Normal appendix and gastrointestinal system. 2. Possible hepatic steatosis. ED Physician has reviewed this report Re-Evaluation - Re-Evaluation First Eval Re-Evaluation Time: 08:40 Change: Improved Comment: Pt is feeling better and wants to go home. Course/Dx - Course Course Of Treatment: Pt was pending Abd/Pelvis CT scan, results noted by ED Physician. Pt will be discharged home and advised to follow up with their PCP within 3 days. - Diagnoses Provider Diagnoses: Abdominal pain Discharge - Sign-Out/Discharge Documenting (check all that apply): Patient Departure - Discharge, Receiving Sign-Out Receiving patient FROM: Lester Chapman - Discharge Plan Condition: Stable Disposition: HOME Patient Education Materials: Acute Abdominal Pain (ED) Referrals: Lori Paz MD [Primary Care Provider] - 3 Days Additional Instructions: RETURN TO THE EMERGENCY DEPARTMENT FOR CHANGING OR WORSENING SYMPTOMS - Billing Disposition and Condition Condition: STABLE Disposition: Home
--- NOTE | 2017-12-07 07:25 | ED ---
Progress - Progress Note Progress Note: This is art Rebolledo documenting for Dr. Lester Chapman MD. Received sign out from Janel Shepard, awaiting Abd/Pel CT. CT has still not been completed and pt is being signed out to Dr. Artem Lopez. Re-Evaluation - Re-Evaluation First Eval Re-Evaluation Time: 08:40 Change: Improved Comment: Pt is feeling better and wants to go home. Course/Dx - Course Course Of Treatment: Patient presents with 3 days of nausea and abrupt onset of right lower quadrant pain with vomiting today. She reports is associated with eating. Also admits to some right upper quadrant pain however she is primarily tender in the right lower quadrant, mild right upper quadrant pain. Currently her nausea is controlled. Does feel she could be dehydrated with her symptoms of lightheadedness. Also reports a right-sided "migraine" headache. Discussed workup for right lower quadrant pain with patient and administration of IV fluids plus Compazine to reduce lightheadedness and headache. Labs thus far are unremarkable for acute infection or inflammation. With her physical exam and history of present illness, CT abdomen and pelvis was ordered. If necessary , ultrasound may be ordered to better assess for ovarian torsion however pelvic exam was unremarkable. Vitals up in stable. Patient signed out to Dr. Chapman and stable condition with pain controlled. Received sign out from Janel Shepard, awaiting Abd/Pel CT. CT has still not been completed and pt is being signed out to Dr. Artem Lopez. - Diagnoses Provider Diagnoses: Abdominal pain Discharge - Sign-Out/Discharge Documenting (check all that apply): Patient Departure - sign out Signing out patient TO: Artem Lopez Receiving patient FROM: Janel Shepard - Discharge Plan Condition: Stable Disposition: HOME Patient Education Materials: Acute Abdominal Pain (ED) Referrals: Lori Paz MD [Primary Care Provider] - 3 Days Additional Instructions: RETURN TO THE EMERGENCY DEPARTMENT FOR CHANGING OR WORSENING SYMPTOMS - Billing Disposition and Condition Condition: STABLE Disposition: Home
--- NOTE | 2017-12-07 08:38 | RAD ---
CLINICAL HISTORY: Right lower quadrant pain with nausea and vomiting COMPARISON: Similar CT examination October 06, 2016 TECHNIQUE: Contrast enhanced CT examination of the abdomen and pelvis from the lung bases through the initial tuberosities. The patient received 100 mL Omnipaque 300 intravenously prior to imaging.The patient received oral contrast as well prior to imaging. FINDINGS: VISUALIZED LUNG BASES: The visualized lung bases are grossly clear. There is no pleural effusion. ABDOMEN AND PELVIS: The liver is homogenously hypodense relative to the spleen. There are no focal suspicious liver lesions or intrahepatic biliary duct dilatation. The spleen, pancreas and adrenal glands are grossly normal in appearance. The gallbladder is normal. The kidneys are normal in appearance without focal mass, calcification or signs of hydronephrosis. The oral contrast has progressed as far as the distal small bowel which somewhat limits evaluation of the terminal ileum and colon. The small and large bowel are not distended. The patient's normal appendix is identified in the right lower quadrant with gas partially filling the lumen (coronal image 58 and axial image 52). There are scattered mesenteric lymph nodes visible, but none are pathologically enlarged. The pelvic viscera is normal in appearance. The abdominal aorta and iliac arteries are normal in course and diameter. There are no sinister bone lesions. IMPRESSION: 1. Normal appendix and gastrointestinal system. 2. Possible hepatic steatosis.
[2017-12-07 08:53] VITALS: BP 95/73
--- NOTE | 2017-12-08 16:52 | PN ---
Progress Note - Progress Note Date of Service: 12/07/17 Note: Called patient at 5 PM to make aware of positive Gardnerella She is prescribed metronidazole 500 mg twice a day 7 days
== END 2017-12-07 08:57 | disposition home or self-care (01) ==
LOC: ED 00:40
DX: R10.31 Right lower quadrant pain (principal); R10.11 Right upper quadrant pain; R11.2 Nausea with vomiting, unspecified; Z88.0 Allergy status to penicillin; Z91.018 Allergy to other foods; Z83.3 Family history of diabetes mellitus; Z82.5 Family history of asthma and other chronic lower respiratory diseases
CPT/HCPCS: 36415; 74177; 80053; 81003; 81015; 83605; 83690; 83735; 84702; 85025; 86140; 86703; 87086; 87480; 87491; 87510; 87591; 87661; 96361; 96374; 96375; 99282; J0780; J1200; Q9967

== ENCOUNTER 2018-07-22 10:25 | Emergency (ER) | payer OTHER ==
--- OUTSIDE RECORDS SUMMARY | 2018-07-22 10:34 | XMS REPORT | Continuity of Care Document ---
:1995 External Reference #:[id number] Author Name Jossue Schroeder M.D. Address [address] [place] [address] Care Team Providers Name Role Phone Lori Paz MD Primary Care Physician Unavailable Payers Date Identification Numbers Payment Provider Subscriber Policy Number: [id number] [facility] Emi Moreno PayID: [id number] [address] [address] [place] [address] Advance Directives Description No Information Available Problems Description No Information Family History Date Family Member(s) Observation Comments Father A&W Mother Drug Addiction First Brother A&W Second Brother A&W First Sister A&W Second Sister A&W Paternal Grandfather Diabetes Paternal Grandmother A&W Maternal Grandfather Unknown Maternal Grandmother Unknown Social History Type Date Description Comments Sex Unknown Education Highest Level Completed Is Ged Marital Status Single Lives With Boyfriend and boyfriend's parents Pets 2 cats Environmental Hazards Low Lead Risk Environmental Hazards Not exposed to any environmental hazards Cigarette Use Does Not Smoke Cigarettes ETOH Use Does Not Drink Alcohol Recreational Drug Use Does Not Use Drugs Tobacco Use Start: Unknown Patient has never smoked Smoking Status Reviewed: 07/20/18 Patient has never smoked Seat Belt/Car Seat Always uses seat belt Currently Active Patient is currently sexually active Contraceptive Methods Nexplanon STD's No STD History Allergies, Adverse Reactions, Alerts Date Description Reaction Status Severity Comments 12/20/2014 Amoxicillin Active 12/20/2014 Pineapple Active Medications Medication Date Status Form Strength Qnty SIG Indications Ordering Provider Nexplanon Active Implant 68mg Jossue Schroeder M.D. Diflucan Hx Tablets 100mg 6tabs 2 by N76.2 Aminata 017 - mouth Jump, 1st dose ANP-C 017 and then 1 by mouth every day x 4 No Active Hx Unknown Medications 016 - 016 Ibuprofen Hx Tablets 600mg 30tabs 1 by Danisha 016 - mouth q6 Petersen, hours as CNM 016 needed for pain Zatean-PN Dha Hx Capsules 27-0.6-0.4- 30caps 1 by Danisha 015 - 300mg mouth Petersen, every CNM 016 day No Active Hx Dvorah Medications 015 - [place], Nayla 015 Immunizations CPT Code Status Date Vaccine Lot # [id number] Given 04/12/2015 Tetnus, Diptheria Toxoids And Acellular Pertussis, [id number] PT > 7Yrs Old Vital Signs Date Vital Result Comment 07/20/2018 2:51pm BP Systolic 126 mmHg BP Diastolic 76 mmHg Height 62 inches 5'2" Weight 204.00 lb BMI (Body Mass Index) 37.3 kg/m2 Last Menstrual Period [id number] 1 Parity 1 01/20/2018 1:05pm BP Systolic 122 mmHg BP Diastolic 82 mmHg Height 62 inches 5'2" Weight 195.00 lb BMI (Body Mass Index) 35.7 kg/m2 Last Menstrual Period [id number] 1 Parity 1 08/04/2016 1:53pm BP Systolic 110 mmHg BP Diastolic 72 mmHg Height 62 inches 5'2" Weight 205.00 lb BMI (Body Mass Index) 37.5 kg/m2 Last Menstrual Period [id number] 1 Parity 1 11/05/2015 1:26pm BP Systolic 122 mmHg BP Diastolic 66 mmHg Height 62 inches 5'2" Weight 182.00 lb BMI (Body Mass Index) 33.3 kg/m2 1 Parity 1 08/06/2015 12:42pm BP Systolic 106 mmHg BP Diastolic 64 mmHg Height 62 inches 5'2" Weight 161.00 lb BMI (Body Mass Index) 29.4 kg/m2 Last Menstrual Period [id number] 1 Parity 1 08/01/2015 8:11am BP Systolic 126 mmHg BP Diastolic 74 mmHg Height 62 inches 5'2" Weight 164.00 lb BMI (Body Mass Index) 30.0 kg/m2 Last Menstrual Period 0654175 1 Parity 1 12/21/2014 1:31pm BP Systolic 106 mmHg BP Diastolic 60 mmHg Height 62 inches 5'2" Weight 164.00 lb BMI (Body Mass Index) 30.0 kg/m2 Last Menstrual Period 6912526 1 Parity 0 Results Test Date Facility Test Result H/L Range Note Urinalysis Profile 06/22/2015 [facility] [place] [address] [phone] Urine Appearance Turbid N Urine Specific [place] 1.014 N 1.010-1.030 Urine pH 6.0 N 5-9 Urine Urobilinogen Negative N Negative Urine Ketones Negative N Negative Urine Protein 2+(100 mg/dL) Abnormal Negative Urine Leukocytes 3+ Abnormal Negative Urine Blood 1+ Abnormal Negative Urine Nitrite Negative N Negative Urine Bilirubin Negative N Negative Urine Glucose Negative N Negative Urine White Blood Cell 3+(>20/hpf) Abnormal Absent Urine Red Blood Cell 1+(3-5/hpf) Abnormal Absent Urine Bacteria Absent N Absent Urine Squamous Epithelial Cell Present Abnormal Absent Urine Culture And 06/22/2015 [facility] Urine Culture SEE RESULT 1 [place] [address] BELOW [phone] Laboratory test 06/15/2015 [facility] Group B Strep SEE RESULT 2 [place] [address] Culture Screen BELOW [phone] Urinalysis Profile 06/04/2015 [facility] [place] [address] [phone] Urine Appearance Cloudy N Urine Specific [place] 1.011 N 1.010-1.030 Urine pH 7.0 N 5-9 Urine Urobilinogen Negative N Negative Urine Ketones Trace Abnormal Negative Urine Protein Negative N Negative Urine Leukocytes 3+ Abnormal Negative Urine Blood 1+ Abnormal Negative Urine Nitrite Negative N Negative Urine Bilirubin Negative N Negative Urine Glucose Negative N Negative Urine White Blood Cell 3+(>20/hpf) Abnormal Absent Urine Red Blood Cell 3+(>10/hpf) Abnormal Absent Urine Bacteria 2+ Abnormal Absent Urine Squamous Epithelial Cell Present Abnormal Absent Urine Culture And 06/04/2015 [facility] Urine Culture SEE RESULT 3 [place] [address] BELOW [phone] Urine Drug SCR ED 05/18/2015 [facility] Amphetamine Ur None N None & [place] [address] Screen Detected Detect [phone] Barbiturates Urine Screen None Detected N None Detect Benzodiazepine Urine Screen None Detected N None Detect Urine Cannabinoids Screen None Detected N None Detect Urine Cocaine Screen None Detected N None Detect Urine Opiates Screen None Detected N None Detect Urine Phencyclidine Screen None Detected N None Detect 4 CBC With No 05/18/2015 [facility] White Blood 9.9 10^3/uL N 3.5-10.8 [place] [address] Count [phone] Red Blood Count 4.07 10^6/uL N 4.0-5.4 Hemoglobin 11.3 g/dL Low 12.0-16.0 Hematocrit 35 % N 35-47 Mean Corpuscular Volume 86 fL N 80-97 Mean Corpuscular Hemoglobin 28 pg N 27-31 Mean Corpuscular HGB Conc 32 g/dL N 31-36 Red Cell Distribution Width 14 % N 10.5-15 Platelet Count 298 10^3/uL N 150-450 Mean Platelet Volume 9 um3 N 7.4-10.4 Laboratory test 04/12/2015 [facility] Glucose 1 HR 95 mg/dL N 70-160 [place] [address] Post Prandial [phone] CBC With No Diff 04/12/2015 [facility] White Blood 12.0 High 4.8-10.8 [place] [address] Count 10^3/uL [phone] Red Blood Count 3.94 10^6/uL Low 4.0-5.4 Hemoglobin 11.7 g/dL Low 12.0-16.0 Hematocrit 37 % N 35-47 Mean Corpuscular Volume 94 fL N 80-97 Mean Corpuscular Hemoglobin 30 pg N 27-31 Mean Corpuscular HGB Conc 32 g/dL N 31-36 Red Cell Distribution Width 14 % N 10.5-15 Platelet Count 286 10^3/uL N 150-450 Mean Platelet Volume 9 um3 N 7.4-10.4 Laboratory test 04/12/2015 [facility] Rubella Screen Equiv[place] [address] IU/mL [phone] GC/Chlamydia 04/12/2015 [facility] Chlamydia Negative N [place] [address] trachomatis Rna [phone] Neisseria gonorrhoeae (GC) Rna Negative N Negative Serum Integrated Screen Part 2 [place] 01/16/2015 [facility] Interpretation SEE BELOW 5 Risk For Ontd <1:5000 Age Risk Down Syndrome 1:1200 LITZY Down Syndrome Risk <1:5000 <1:270 LITZY Trisomy 18 Risk <1:5000 <1:100 Calculated Gestational Age 15.9 Afp,Serum 31.1 ng/mL Afp Mom 1.04 6 HCG,Serum 41.6 IU/mL HCG Mom 1.21 Estriol,Free 1.20 ng/mL Estriol Mom 1.57 Inhibin A,Dimeric 97 pg/mL Inhibin A Mom 0.59 Luis-A 511 ng/mL Luis-A Mom 0.92 7 Referring Physician Name JOSE LUIS Referring Physician Phone [phone] Referring Physician Npi [id number] Specimen # From Part 1 [id number] Date Of Collection Date Maternal Weight 164 lbs Est'd Date Of Delivery 07/04/2015 Mother's Ethnic Origin Insulin Depend Diabetic NO Repeat Specimen NOT GIVEN Number Of Fetuses 1 HX Of Neural Tube Defects NO 8 Laboratory test finding 12/22/2014 [facility] Varicella-Zoster AB (Igg) 1.73 9 Serum Integrated SCRN 12/22/2014 [facility] Comment SEE BELOW 10 Part 1 OR Referring Physician Name JOSE LUISCAMRYN 11 Referring Physician Phone [phone] Referring Physician Npi [id number] Date Of 1995 14 Collection Date 12/22/2014 15 Maternal Weight 164 lbs 16 Est'd Date Of Delivery 07/04/2015 17 SWETHA Determined By ULTRASOUND 18 Mother's Ethnic Origin 19 Number Of Fetuses 1 20 Insulin Depend Diabetic NO 21 Repeat Specimen NOT GIVEN 22 HX Of Neural Tube Defects NO 23 Prev Down Synd NO 24 Donor Egg NO 25 Donor Age:Egg Retrieval NOT GIVEN 26 Toxoplasma AB(Igg,M),Eia 12/22/2014 [facility] Toxoplasma Igg AB <0.91 27 Toxoplasma Igm AB NEGATIVE PNL No 12/21/2014 [facility] Rubella Equivocal IU/[place] [address] Screen [phone] Hemoglobin A1c 5.6 % N Less than 6.0 28 Hepatitis B Surface Ag Nonreactive N Nonreactive 29 RPR 12/21/2014 [facility] Pediatric/[place] [address] [phone] RPR Nonreactive N Nonreactive RPR Titer TNP N Syphilis IgG TNP N Nonreactive CBC With No 12/21/2014 [facility] White Blood 8.0 10^3/uL N 4.8-10.8 [place] [address] Count [phone] Red Blood Count 4.43 10^6/uL N 4.0-5.4 Hemoglobin 13.1 g/dL N 12.0-16.0 Hematocrit 41 % N 35-47 Mean Corpuscular Volume 92 fL N 80-97 Mean Corpuscular Hemoglobin 30 pg N 27-31 Mean Corpuscular HGB Conc 32 g/dL N 31-36 Red Cell Distribution Width 15 % N 10.5-15 Platelet Count 264 10^3/uL N 150-450 Mean Platelet Volume 9 um3 N 7.4-10.4 Type And Screen 12/21/2014 [facility] Patient Blood [place] [address] [phone] Antibody Screen NEGATIVE N HIV 1/2 AB 12/21/2014 [facility] HIV 1 2 Nonreactive N Nonreactive 30 [place] [address] Antibody [phone] Urine Culture 12/21/2014 [facility] Urine SEE RESULT 31 [place] [address] Culture BELOW Sensitivities [phone] 1 SEE RESULT BELOW Name: MEI MORENO : [address]: Cinthya Petersen [facility] Acct: [id number] Unit: [id number] AGE: 19 Location: [facility] Re06/22/15 SEX: F Status: DEP REF SPEC: [id number] JOLYNN: 06/22/[address]: Cinthya Petersen [facility] REQ: [id number] RECD: 06/22/15 STATUS: KATHRYN FARR DR: Keshav Lane III, MD _ SOURCE: URINE SPDESC: ORDERED: Urine Culture QUERIES: Urine Source: Clean Catch Procedure Result Reported Site Urine Culture Final 06/23/15- 907 ML No Growth (<1,000 CFU/mL) * ML - MAIN LAB ([facility]) . END OF REPORT * ML=Testing performed at Main Lab DEPARTMENT OF PATHOLOGY, [address] [place] [address] Kulwant Sierra M.D. Director [facility] # [id number] 2 SEE RESULT BELOW Name: EMI MORENO : [address]: Cinthya Petersen CNM Acct: [id number] Unit: [id number] AGE: 19 Location: [facility] Re06/15/15 SEX: F Status: REG REF SPEC: [id number] JOLYNN: 06/15/15-[address]: Cinthya Petersen sImael REQ: [id number] RECD: 06/18/15 STATUS: COMP _ SOURCE: CER/VAG/RE SPDESC: ORDERED: Grp B Strp Scrn QUERIES: Is Patient Penicillin Allergic? Y Is patient penicillin allergic and/or sensitivities needed? Y Provider Requisition # [id number]_ Procedure Result Reported Site Group B Strep Culture Screen Final 06/20/15- 1034 ML Group B Strep Screen Negative * ML - MAIN LAB ([facility]) . END OF REPORT * ML=Testing performed at Main Lab DEPARTMENT OF PATHOLOGY, [address] [place] [address] Kulwant Sierra M.D. Director [facility] # [id number] 3 SEE RESULT BELOW Name: EMI MORENO : [address]: Malou Andino [facility] Acct: [id number] Unit: [id number] AGE: 19 Location: [facility] Re06/04/15 SEX: F Status: DEP REF SPEC: [id number] JOLYNN: 06/04/[address]: Malou Andino [facility] REQ: [id number] RECD: 06/04/15 STATUS: KATHRYN FARR DR: Keshav Lane III, MD _ S[facility] ORDERED: Urine Culture Procedure Result Reported Site Urine Culture Final 06/05/15- 1732 ML No growth of clinically significant organisms * ML - MAIN LAB ([facility]) . END OF REPORT * ML=Testing performed at Main Lab DEPARTMENT OF PATHOLOGY, [address] [place] [address] Kulwant Sierra M.D. Director [facility] # [id number] 4 The urine specimen was tested at the listed cutoffs: Drug class test level (ng/mL) Amphetamines 500 Barbituates 200 Benzodiazepine metabolites 200 Cocaine metabolites 150 Cannabinoids 50 Opiates 300 Pcp 25 This is a screening procedure. Positive results are not confirmed. Specimen was received without chain of custody. Results should be used for medical purposes only. 5 SCREEN NEGATIVE FOR OPEN NTD, DOWN SYNDROME AND TRISOMY 18. 6 Reference Range: <2.50 IDD <1.90 TWINS <4.00 TWINS IDD <3.50 TRIPLETS <4.50 7 The Serum Integrated Screen combines LUIS-A in the first trimester with AFP, unconjugated estriol, intact hCG and Inhibin A in the second trimester. This provides a useful screening test for detection of open neural tube defects, Down syndrome and Trisomy 18. It should be noted that normal results can never guarantee the of a normal baby and that 2 to 3 percent of newborns have some type of physical or mental defect, many of which are undetectable through any known diagnostic technique. Interpretation reviewed by: Feliciano Reich, Ph.D., [facility] This is a screening test, not a diagnostic test. This risk assessment is based on demographic data provided by the ordering physician. Please notify the laboratory promptly if any data are incorrect. If you have questions concerning this report: For clinical consultation, call ; For technical questions, call ext [phone]; For recalculations, fax to . This test was developed and its performance characteristics have been determined by [facility]. Performance characteristics refer to the analytical performance of the test. 8 For additional information, please refer to http://education.[employer].Comr.se/faq/FAQ93 (This link is being provided for informational/educational purposes only.) 9 INDEX VALUE RESULTS INTERPRETATION ------- < OR=0.90 NEGATIVE NO VZV IGG ANTIBODY DETECTED 0.91 - 1.09 EQUIVOCAL PRESENCE OF ABSENCE OF VZV IGG ANTIBODY CANNOT BE DISCERNED > OR=1.10 POSITIVE VZV IGG ANTIBODY DETECTED A positive result indicates that the patient has antibody to VZV but does not diffenentiate between infection (active or past) and vaccination. The clinical diagnosis must be interpreted in conjunction with the clinical signs and symptoms of the patient. This assay reliably measures immunity due to previous infection but may not be sensitive enough to detect antibodies induced by vaccination. Thus, a negative result in a vaccinated individual does not necessarily indicate susceptibility to VZV infection. 10 Thank you for submitting this patients Part 1 specimen. Please submit her Part 2 specimen between 01/10/2015-03/06/2015 (15.0 and 22.9 weeks gestation) with 01/10/2015-01/23/2015 (15.0 and 16.9 weeks gestation) being optimal. When submitting Part 2, please include the following Specimen # from Part 1: [id number] If you have questions concerning this report: For clinical consultation, call ; For technical questions, call ext [phone]; For recalculations, fax to . This test was developed and its performance characteristics have been determined by [facility]. Performance characteristics refer to the analytical performance of the test. For additional information, please refer to http://PerceptiMed.myThings/faq/FAQ91 (This link is being provided for informational/educational purposes only.) 11 For additional information, please refer to http://PerceptiMed.myThings/faq/FAQ91 (This link is being provided for informational/educational purposes only.) 12 For additional information, please refer to http://PerceptiMed.myThings/faq/FAQ91 (This link is being provided for informational/educational purposes only.) 13 For additional information, please refer to http://PerceptiMed.myThings/faq/FAQ91 (This link is being provided for informational/educational purposes only.) 14 For additional information, please refer to http://PerceptiMed.myThings/faq/FAQ91 (This link is being provided for informational/educational purposes only.) 15 For additional information, please refer to http://iApp4Me/faq/FAQ91 (This link is being provided for informational/educational purposes only.) 16 For additional information, please refer to http://PerceptiMedYoujia/faq/FAQ91 (This link is being provided for informational/educational purposes only.) 17 For additional information, please refer to [employer]://iApp4Me/[employer] Wineryq/FAQ91 (This link is being provided for informational/educational purposes only.) 18 For additional information, please refer to [employer]://iApp4Me/[employer] Win[employer]q/FAQ91 (This link is being provided for informational/educational purposes only.) 19 For additional information, please refer to http://iApp4Me/Wayger/[email or web address] (This link is being provided for informational/educational purposes only.) 20 For additional information, please refer to [employer]://iApp4Me/Wayger/[email or web address] (This link is being provided for informational/educational purposes only.) 21 For additional information, please refer to [employer]://[email or web address]/Wayger/[email or web address] (This link is being provided for informational/educational purposes only.) 22 For additional information, please refer to http://iApp4Me/Wayger/[email or web address] (This link is being provided for informational/educational purposes only.) 23 For additional information, please refer to http://iApp4Me/Wayger/[email or web address] (This link is being provided for informational/educational purposes only.) 24 For additional information, please refer to http://iApp4Me/Wayger/[email or web address] (This link is being provided for informational/educational purposes only.) 25 For additional information, please refer to http://iApp4Me/[employer] Wineryq/FAQ91 (This link is being provided for informational/educational purposes only.) 26 For additional information, please refer to http://iApp4Me/Wayger/[email or web address] (This link is being provided for informational/educational purposes only.) 27 INDEX VALUE RESULTS INTERPRETATION ------- < OR=0.90 NEGATIVE NO TOXOPLASMA IGG ANTIBODY DETECTED 0.91 - 1.09 EQUIVOCAL PRESENCE OR ABSENCE OF TOXOPLASMA IGG ANTIBODY CANNOT BE DISCERNED > OR=1.10 POSITIVE TOXOPLASMA IGG ANTIBODY DETECTED A positive result indicates infection with Toxoplasma gondii at some time, but does not differentiate between an active or past infection. 28 Therapeutic target for the treatment of diabetes Mellitus patients is <7% HBA1C, and in selective patients <6.0%.Please refer to [place] [employer] Diabetic care guidelines for further information. 29 , Pediatric (<=12yrs) or Maternal?: YES 30 It is recognized that currently available assays for the detection of antibodies to HIV-1 and/or HIV-2 may not detect all infected individuals. HIV antibodies may be undetectable in some stages of the infection and in some clinical conditions. The performance of this assay has not been established for populations of infants or children. Assayed by Chemiluminescence Microparticle Immunoassay on the Siemens Advia Centaur CP. Values obtained with different methods or kits cannot be used interchangeably.The diagnostic specificity of the ADVIA Centaur 1/O/2 Enhanced assay in the low risk population was 99.90% (6052/6058) with a 95% confidence interval of 99.78 to 99.96%. 31 SEE RESULT BELOW Name: EMI MORENO : [address]: Gaurav Singh MD Acct: [id number] Unit: [id number] AGE: 19 Location: [facility] Re12/21/14 SEX: F Status: REG REF SPEC: [id number] JOLYNN: 12/21/14-[address] [facility] [address]: Gaurav Singh MD REQ: [id number] RECD: 12/21/14 STATUS: COMP _ SOURCE: URINE SPDESC: ORDERED: Urine Culture Procedure Result Verified Site Urine Culture Final 12/23/14- 1159 ML Organism 1 NORMAL NILSA [place] Count 10-25,000 (Moderate) CFU/ML * ML - MAIN LAB ([facility]) . END OF REPORT * ML=Testing performed at Main Lab DEPARTMENT OF PATHOLOGY, [address] [place] [address] Kulwant Sierra M.D. Director [facility] # [id number] Procedures Date Code Description Status 07/20/2018 50029 Removal With Reinsertion Non-Biodegradable Drug Delivery Completed Implant 08/06/2015 82274 Insertion, Non-Biodegradable Drug Delivery Implant Completed 06/25/2015 97436 Obstetric Care Routine Completed 06/22/2015 35160 Non-Stress Test Completed 06/17/2015 97650 Non-Stress Test Completed 06/15/2015 93768 Echography Uterus Limited Completed 03/28/2015 13817 Echography Uterus Follow-Up Or Repeat Completed 02/19/2015 92438 Echography Uterus Complete Completed 12/20/2014 26444 OB Ultrasound First Trimester Completed Encounters Type Date Location Provider Dx Diagnosis Office Visit 01/20/2018 [facility] Office Camryn Escalante, N92.5 Other specified 1:00p irregular menstruation Office Visit 08/04/2016 [facility] Office ALLEN Bowie N76.2 Acute vulvitis 2:20p Office Visit 11/05/2015 [facility] Office Ghislaine Alcantara NP Z30.9 Encounter for 2:00p contraceptive management, unspecified Office Visit 06/17/2015 Delivery Malou Andino CNM O47.1 False labor at or 1:41a after 37 completed weeks of gestation Office Visit 05/18/2015 [facility] Office Gaurav Singh, R10.9 Unspecified abdominal 3:08p M.DNorman pain Office Visit 03/28/2015 [facility] Office Camryn Escalante, O71.9 Obstetric trauma, 1:30p unspecified Plan of Treatment 07/20/2018 - Jossue Schroeder M.D.Z30.017 Encounter for initial prescription of implantable subdermal contraceptiveComments:discussed risks benefits alternatives to nexplanon. < 1% failure / side effect including but notlimited to annoying bleeding/ weight gain . questions answered . process for insertion and removaluse backup for a weekcondom with new partner
[2018-07-22 10:38] VITALS: BP 133/80
--- NOTE | 2018-07-22 11:12 | UC ---
FLU HPI - HPI Summary HPI Summary: sore throat started last night w/ L sided sinus pain and tooth pain. felt very feverish. denies cough or neck pain. - History of Current Complaint Chief Complaint: UCGeneralIllness Stated Complaint: SINUS ISSUE SORE THROAT EAR PAIN Time Seen by Provider: 07/22/18 11:08 Hx Obtained From: Patient Hx Last Menstrual Period: 07/10/18 Onset/Duration: Sudden Onset Pain Intensity: 4 Pain Scale Used: 0-10 Numeric Associated Signs & Symptoms: Positive: Fever, Myalgia, Sore Throat. Negative: Headache - Allergy/Home Medications Allergies/Adverse Reactions: Allergies Allergy/AdvReac Type Severity Reaction Status Date / Time amoxicillin Allergy Hives Verified 07/22/18 10:39 pineapple Allergy See Comment Verified 07/22/18 10:39 PMH/Surg Hx/FS Hx/Imm Hx Previously Healthy: Yes Other History Of: Negative For: Anticoagulant Therapy - Surgical History Surgical History: None - Family History Known Family History: Positive: Diabetes, Respiratory Disease - asthma (sister) Negative: Cardiac Disease - Social History Alcohol Use: Rare Substance Use Type: Marijuana Smoking Status (MU): Never Smoked Tobacco Have You Smoked in the Last Year: No Household Exposure Type: Cigarettes - Immunization History Most Recent Influenza Vaccination: season Most Recent Pneumonia Vaccination: not indicated Vaccination Up to Date: Yes Review of Systems All Other Systems Reviewed And Are Negative: Yes Constitutional: Positive: Fever, Chills. Negative: Fatigue Skin: Negative: Rash ENT: Positive: Dental Pain, Sore Throat, Ear Ache, Sinus Congestion, Sinus Pain/ Tenderness Respiratory: Positive: Negative Cardiovascular: Positive: Negative Gastrointestinal: Negative: Vomiting, Diarrhea, Nausea Motor: Negative: Weakness Musculoskeletal: Positive: Myalgia Neurological: Negative: Headache Physical Exam Triage Information Reviewed: Yes Appearance: Well-Appearing Vital Signs: Initial Vital Signs Temp 98.6 F 07/22/18 10:36 Pulse 87 07/22/18 10:36 Resp 17 07/22/18 10:36 BP 133/80 07/22/18 10:36 Pulse Ox 99 07/22/18 10:36 Vital Signs Reviewed: Yes Eyes: Positive: Conjunctiva Clear ENT: Positive: Pharyngeal erythema, TMs normal, Tonsillar swelling, Other - + poor dentition. Negative: Tonsillar exudate, Dental tenderness, Sinus tenderness Dental: Positive: Gross Decay/Caries @ - all teeth Neck: Positive: Tenderness @ - at L ant. cerv chain. Negative: Nuchal Rigidity , Enlarged Nodes @ Respiratory Exam: Normal Cardiovascular Exam: Normal Neurological: Positive: Alert Skin: Negative: Rashes Flu Course/Dx - Course Course Of Treatment: fever, sore throat started last night. did not get flu shot. her main concern was throat and on exam was erythematous w/ no exudates. Rapid strep + for strep so will tx w/ zpack given her allergy. vitals good. she was concerned about nexplanon and antibx interaction and was advised to use condoms while using antibiotics. - Differential Dx/Diagnosis Differential Diagnosis/HQI/PQRI: Broncholiolitis, Upper Respiratory Infection, Other Provider Diagnosis: Strep pharyngitis Discharge - Sign-Out/Discharge Documenting (check all that apply): Patient Departure All imaging exams completed and their final reports reviewed: No Studies - Discharge Plan Condition: Good Disposition: HOME Prescriptions: Azithromycin TAB* [Zithromax TAB (Z-KAREN) 250 mg #6 tabs] 250 mg PO DAILY 5 Days #6 tab Patient Education Materials: Strep Throat (ED) Referrals: Lori Paz MD [Primary Care Provider] - Additional Instructions: please use condoms while on antibiotics. - Billing Disposition and Condition Condition: GOOD Disposition: Home
== END 2018-07-22 11:48 | disposition home or self-care (01) ==
LOC: UCEAST 10:25
DX: J02.0 Streptococcal pharyngitis (principal); Z88.0 Allergy status to penicillin; Z91.018 Allergy to other foods
CPT/HCPCS: 87651; 99212; G0463

== ENCOUNTER 2018-07-24 15:10 | Emergency (ER) | payer OTHER ==
[2018-07-24 15:54] VITALS: BP 115/83
--- NOTE | 2018-07-24 16:53 | UC ---
Respiratory Complaint HPI - HPI Summary HPI Summary: 1. bruising to left upper arm at site of implanon insertion 2. continued nasal congestion with uri/strep throat requesting med for nasal congestion, throat seems to be getting better - History of Current Complaint Chief Complaint: TOMÁSkin Stated Complaint: CONGESTION,L ARM COMPLAINT Time Seen by Provider: 07/24/18 16:45 Hx Obtained From: Patient Hx Last Menstrual Period: 07/06/18 ?: No Onset/Duration: Sudden Onset, Lasting Days, Still Present Timing: Constant Severity Currently: Moderate Pain Intensity: 8 Pain Scale Used: 0-10 Numeric Aggravating Factors: Nothing Alleviating Factors: Nothing Associated Signs And Symptoms: Positive: URI, Nasal Congestion - Allergies/Home Medications Allergies/Adverse Reactions: Allergies Allergy/AdvReac Type Severity Reaction Status Date / Time amoxicillin Allergy Hives Verified 07/24/18 15:54 pineapple Allergy See Comment Verified 07/24/18 15:54 PMH/Surg Hx/FS Hx/Imm Hx Previously Healthy: Yes Other History Of: Negative For: Anticoagulant Therapy - Surgical History Surgical History: None - Family History Known Family History: Positive: Diabetes, Respiratory Disease - asthma (sister) Negative: Cardiac Disease - Social History Occupation: Unemployed Lives: With Family Alcohol Use: Rare Substance Use Type: Marijuana Smoking Status (MU): Never Smoked Tobacco Have You Smoked in the Last Year: No Household Exposure Type: Cigarettes - Immunization History Most Recent Influenza Vaccination: season Most Recent Pneumonia Vaccination: not indicated Vaccination Up to Date: Yes Review of Systems All Other Systems Reviewed And Are Negative: Yes Constitutional: Positive: Negative Skin: Positive: Bruising - left inner arm at site of implanon insertion Eyes: Positive: Negative ENT: Positive: Sore Throat, Nasal Discharge, Sinus Congestion Respiratory: Positive: Negative Cardiovascular: Positive: Negative Gastrointestinal: Positive: Negative Genitourinary: Positive: Negative Motor: Positive: Negative Neurovascular: Positive: Negative Musculoskeletal: Positive: Negative Neurological: Positive: Negative Psychological: Positive: Negative Is Patient Immunocompromised?: Yes Physical Exam Triage Information Reviewed: Yes Appearance: Well-Appearing, No Pain Distress, Well-Nourished Vital Signs: Initial Vital Signs Temp 98.0 F 07/24/18 15:50 Pulse 77 07/24/18 15:50 Resp 12 07/24/18 15:50 BP 115/83 07/24/18 15:50 Pulse Ox 100 07/24/18 15:50 Vital Signs Reviewed: Yes Eye Exam: Normal Eyes: Positive: Conjunctiva Clear ENT Exam: Normal ENT: Positive: Normal ENT inspection, Hearing grossly normal, Pharynx normal, Nasal congestion, TMs normal. Negative: Trismus, Muffled voice, Hoarse voice Dental Exam: Normal Neck exam: Normal Neck: Positive: Supple, Nontender, No Lymphadenopathy Respiratory Exam: Normal Respiratory: Positive: Chest non-tender, Lungs clear, Normal breath sounds, No respiratory distress, No accessory muscle use Cardiovascular Exam: Normal Cardiovascular: Positive: RRR, No Murmur, Pulses Normal, Brisk Capillary Refill Musculoskeletal Exam: Normal Musculoskeletal: Positive: Strength Intact, ROM Intact, No Edema Neurological Exam: Normal Neurological: Positive: Alert, Muscle Tone Normal Psychological Exam: Normal Skin Exam: Other Skin: Positive: Other - bruising left upper arm Respiratory Course/Dx - Course Course Of Treatment: flonase and mucinex---ibuprofen for pain follow with pcp as needed - Differential Dx/Diagnosis Provider Diagnosis: Encounter for surveillance of Implanon subdermal contraceptive, Nasal congestion with rhinorrhea Discharge - Sign-Out/Discharge Documenting (check all that apply): Patient Departure All imaging exams completed and their final reports reviewed: No Studies - Discharge Plan Condition: Stable Disposition: HOME Prescriptions: Fluticasone NASAL SPRAY 50MCG* [Flonase NASAL SPRAY 50MCG*] 2 spray BOTH NARES DAILY #1 btl guaiFENesin [Mucinex] 1,200 mg PO BID PRN #30 tab.er.12h PRN Reason: Congestion Ibuprofen TAB* [Motrin TAB* 600 MG] 600 mg PO Q6H PRN #40 tab PRN Reason: Pain Patient Education Materials: Rhinosinusitis (ED), Contusion in Adults (ED) Referrals: Lori Paz MD [Primary Care Provider] - If Needed - Billing Disposition and Condition Condition: STABLE Disposition: Home
== END 2018-07-24 17:20 | disposition home or self-care (01) ==
LOC: UCEAST 15:10
DX: R09.81 Nasal congestion (principal); J34.89 Other specified disorders of nose and nasal sinuses; Z30.46 Encounter for surveillance of implantable subdermal contraceptive; Z88.0 Allergy status to penicillin; Z91.018 Allergy to other foods
CPT/HCPCS: 99212; G0463

== ENCOUNTER 2018-08-21 19:16 | Emergency (ER) | payer OTHER ==
[2018-08-21 19:28] VITALS: BP 141/78
--- NOTE | 2018-08-21 19:37 | UC ---
Hand/Wrist HPI - HPI Summary HPI Summary: 22-year-old female comes in with a chief complaint of right wrist pain. 5 days ago she accidentally struck her right wrist on a wall. Today at work she reinjured it striking it on a piece of kitchen equipment. Pain and swelling is in the distal radius area into the wrist. Pain with palpation and range of motion. No weakness numbness. No skin break. There is some bruising at the site. Patient's able to move her fingers and her elbow and shoulder full range of motion. She's been taking ibuprofen which does help with the pain. - History Of Current Complaint Chief Complaint: UCUpperExtremity Stated Complaint: R ARM INJURY Time Seen by Provider: 08/21/18 19:21 Hx Last Menstrual Period: nexplanon but LMP was 07/06/2018 Pain Intensity: 1 - Allergies/Home Medications Allergies/Adverse Reactions: Allergies Allergy/AdvReac Type Severity Reaction Status Date / Time amoxicillin Allergy Hives Verified 08/21/18 19:31 pineapple Allergy See Comment Verified 08/21/18 19:31 PMH/Surg Hx/FS Hx/Imm Hx Previously Healthy: Yes Other History Of: Negative For: Anticoagulant Therapy - Surgical History Surgical History: None - Family History Known Family History: Positive: Diabetes, Respiratory Disease - asthma (sister) Negative: Cardiac Disease - Social History Alcohol Use: Rare Substance Use Type: Marijuana Smoking Status (MU): Never Smoked Tobacco Have You Smoked in the Last Year: No Household Exposure Type: Cigarettes - Immunization History Most Recent Influenza Vaccination: 2014/2015 season Most Recent Pneumonia Vaccination: not indicated Vaccination Up to Date: Yes Review of Systems All Other Systems Reviewed And Are Negative: Yes Constitutional: Positive: Negative Skin: Positive: Bruising Eyes: Positive: Negative ENT: Positive: Negative Respiratory: Positive: Negative Cardiovascular: Positive: Negative Gastrointestinal: Positive: Negative Genitourinary: Positive: Negative Motor: Positive: Negative Neurovascular: Positive: Negative Musculoskeletal: Positive: Other: - see hpi Neurological: Positive: Negative Psychological: Positive: Negative Is Patient Immunocompromised?: No Physical Exam Triage Information Reviewed: Yes Appearance: Well-Appearing, No Pain Distress, Well-Nourished Vital Signs: Initial Vital Signs Temp 98.1 F 08/21/18 19:19 Pulse 87 08/21/18 19:19 Resp 16 08/21/18 19:19 BP 141/78 08/21/18 19:19 Pulse Ox 100 08/21/18 19:19 Vital Signs Reviewed: Yes Eye Exam: Normal Eyes: Positive: Conjunctiva Clear Neck: Positive: Supple Respiratory: Positive: No respiratory distress Musculoskeletal: Positive: Other: - The right wrist is tender to palpation along the distal radius and into the snuffbox. There is some swelling in this area and also some ecchymosis. Fingers wrist elbows shoulders have full range of motion full-strength. Normal capillary refill. No sensation deficit. Neurological: Positive: Alert, Muscle Tone Normal Psychological Exam: Normal Psychological: Positive: Age Appropriate Behavior Skin: Positive: Other - bruising rt wrist over distal radius Hand/Wrist Course/Dx - Course Course Of Treatment: I discussed the x-rays with the patient. I do not see any fractures radiologist reading is pending. Patient was placed in a right thumb spica splint by nursing and she was neurovascularly intact after placement of the splint. Using the thumb spica splint because there was some snuffbox tenderness. Overall I feel the patient has a right wrist tendinitis. I did explain to her that if she continued with pain in the snuffbox or anywhere else in the wrist she needs to get reevaluated may need more x-rays. Overall the plan is to return here if she is not improving or follow-up with sports medicine. - Differential Dx/Diagnosis Provider Diagnosis: Right wrist sprain Discharge - Sign-Out/Discharge Documenting (check all that apply): Patient Departure All imaging exams completed and their final reports reviewed: No - Discharge Plan Condition: Stable Disposition: HOME Patient Education Materials: Wrist Sprain (ED) Forms: *Work Release Referrals: Lori Paz MD [Primary Care Provider] - [facility] [Provider Group] Additional Instructions: FOLLOW UP WITH SPORTS MEDICINE IF NOT COMPLETELY IMPROVED. GET REEVALUATED SOONER FOR WORSENING OF YOUR CONDITION OR QUESTIONS OR CONCERNS. - Billing Disposition and Condition Condition: STABLE Disposition: Home
--- NOTE | 2018-08-22 09:39 | UC ---
- Progress Note Progress Note: final report of right wrist x-ray reviewed.:IMPRESSION: NO EVIDENCE FOR FRACTURE. IF THE PATIENT'S SYMPTOMS PERSIST AND ARE REFERRABLE TO THE NAVICULAR BONE THAN RECOMMEND A FOLLOW-UP X-RAY STUDY OF THE WRIST IN 7-10 DAYS. Wet read correct No change in plan Course/Dx - Diagnoses Provider Diagnoses: Right wrist sprain Discharge - Sign-Out/Discharge Documenting (check all that apply): Post-Discharge Follow Up All imaging exams completed and their final reports reviewed: Yes - Discharge Plan Condition: Stable Disposition: HOME Patient Education Materials: Wrist Sprain (ED) Forms: *Work Release Referrals: [facility] [Provider Group] Lori Paz MD [Primary Care Provider] - Additional Instructions: FOLLOW UP WITH SPORTS MEDICINE IF NOT COMPLETELY IMPROVED. GET REEVALUATED SOONER FOR WORSENING OF YOUR CONDITION OR QUESTIONS OR CONCERNS. - Billing Disposition and Condition Condition: STABLE Disposition: Home
== END 2018-08-21 20:32 | disposition home or self-care (01) ==
LOC: UCEAST 19:16
DX: S63.91XA Sprain of unspecified part of right wrist and hand, initial encounter (principal); S60.211A Contusion of right wrist, initial encounter; W22.09XA Striking against other stationary object, initial encounter; Y92.9 Unspecified place or not applicable; Y99.0 Civilian activity done for income or pay; Z88.0 Allergy status to penicillin; Z91.018 Allergy to other foods
CPT/HCPCS: 99212; G0463

== ENCOUNTER 2018-09-05 17:41 | Emergency (ER) | payer OTHER ==
[2018-09-05 18:05] VITALS: BP 114/75
--- NOTE | 2018-09-05 18:19 | UC ---
Abdominal Pain Female HPI - HPI Summary HPI Summary: This patient is a 22-year-old female who presents to the urgent care with a chief complaint of having right lower quadrant pain. The patient reports that she has history of an ovarian cyst however, her symptoms are different from her ovarian cyst. The patient reports that this pain started couple days ago and has been getting worse for the last couple days. Patient denies any fever denies any chills, denies any nausea or vomiting. She has no other complaints. She denies any diarrhea or constipation. - History of Current Complaint Chief Complaint: UCGU Stated Complaint: ABDOMINAL PAIN, AND EYE IRRITATION Time Seen by Provider: 09/05/18 17:52 Hx Obtained From: Patient Hx Last Menstrual Period: no periods ?: No Onset/Duration: Gradual Onset Severity Initially: Mild Severity Currently: Severe Pain Intensity: 6 Allergies/Adverse Reactions: Allergies Allergy/AdvReac Type Severity Reaction Status Date / Time amoxicillin Allergy Hives Verified 09/05/18 17:58 pineapple Allergy See Comment Verified 09/05/18 17:58 PMH/Surg Hx/FS Hx/Imm Hx Previously Healthy: Yes Other GI/ History: Ovarian cyst Other History Of: Negative For: Anticoagulant Therapy - Surgical History Surgical History: None - Family History Known Family History: Positive: Diabetes, Respiratory Disease - asthma (sister) Negative: Cardiac Disease - Social History Alcohol Use: None Substance Use Type: None Smoking Status (MU): Never Smoked Tobacco Have You Smoked in the Last Year: No Household Exposure Type: Cigarettes - Immunization History Most Recent Influenza Vaccination: 2014/2015 season Most Recent Pneumonia Vaccination: not indicated Vaccination Up to Date: Yes Review of Systems All Other Systems Reviewed And Are Negative: Yes Constitutional: Positive: Negative Skin: Positive: Negative Eyes: Positive: Negative ENT: Positive: Negative Respiratory: Positive: Negative Cardiovascular: Positive: Negative Gastrointestinal: Positive: Abdominal Pain Genitourinary: Positive: Negative Motor: Positive: Negative Neurovascular: Positive: Negative Musculoskeletal: Positive: Negative Neurological: Positive: Negative Psychological: Positive: Negative Is Patient Immunocompromised?: No Physical Exam - Summary Physical Exam Summary: VITAL SIGNS: Reviewed. GENERAL: Patient is an obese female who is lying comfortable in the stretcher. Patient is not in any acute respiratory distress. HEAD AND FACE: Normocephalic and atraumatic. EYES: PERRLA, EOMI x 2, No injected conjunctiva. EARS: Hearing grossly intact. Ear canals and tympanic membranes are WNL. MOUTH: Oropharynx within normal limits. NECK: Supple, trachea is midline, no adenopathy, no JVD. CHEST: Symmetric, no tenderness at palpation LUNGS: Clear to auscultation bilaterally. No wheezing or crackles. CVS: RRR, S1 and S2 present, no murmurs or gallops appreciated. ABDOMEN: Soft, right lower quadrant tenderness. No signs of distention. Positive bowel sounds. No rebound no guarding, and no masses palpated. No abdominal bruit or pulsations. EXTREMITIES: FROM in all major joints, no edema, no cyanosis or clubbing. NEURO: Alert and oriented x 3. No acute neurological deficits. Speech is normal. SKIN: Dry and warm Triage Information Reviewed: Yes Vital Signs: Initial Vital Signs Temp 97.8 F 09/05/18 17:59 Pulse 73 09/05/18 17:59 Resp 18 09/05/18 17:59 BP 114/75 09/05/18 17:59 Pulse Ox 100 09/05/18 17:59 Abd Pain Female Course/Dx - Course Course Of Treatment: In the ED course the patient has right lower quadrant tenderness therefore, she will be referred to the emergency department for further workup and management. The patient reports that she doesnt have the menstrual cycle since the patient is taking contraception. The patient agrees to go to the ER. She declined ambulance transfer. - Differential Dx/Diagnosis Provider Diagnosis: Right lower quadrant pain Discharge - Sign-Out/Discharge Documenting (check all that apply): Patient Departure All imaging exams completed and their final reports reviewed: No Studies - Discharge Plan Condition: Stable Disposition: HOME-RECOMMEND TO ED Patient Education Materials: Acute Abdominal Pain (DC) Referrals: Lori Paz MD [Primary Care Provider] - Additional Instructions: Patient was recommended to go to the emergency department for further workup and management. The patient declined ambulance transport. - Billing Disposition and Condition Condition: STABLE Disposition: Home-Recommend to ED
== END 2018-09-05 18:23 | disposition home health service (06) ==
LOC: UCEAST 17:41
DX: R10.31 Right lower quadrant pain (principal); Z88.0 Allergy status to penicillin; Z91.018 Allergy to other foods
CPT/HCPCS: 99212; G0463

== ENCOUNTER 2018-09-05 19:01 | Emergency (ER) | payer OTHER ==
[2018-09-05] MEDS ORDERED: Ketorolac INJ* 30 MG/ML 1 ML VIAL IV PUSH ONE (19:52)
[2018-09-05] MEDS ORDERED: NS 0.9% 1000 ML** 1,000 ML IV ONE (19:52)
--- NOTE | 2018-09-05 19:55 | ED ---
GI/ HPI - HPI Summary HPI Summary: 22-year-old female presents with right lower quadrant for the the past couple months. She states in the past 2 days it has gotten worse. She admits to nausea vomiting diarrhea. No urinary symptoms. No abnormal vaginal discharge. Patient is sexually active. No fevers. Pain does not move anywhere. Pain is constant. Has no medical conditions. she does have a history of ovarian cysts and states that it feels different. no cough, chest pain or sob. - History of Current Complaint Chief Complaint: EDAbdPain Time Seen by Provider: 09/05/18 19:35 Stated Complaint: ABD PAIN FROM CC Hx Last Menstrual Period: no periods Pain Intensity: 7 - Allergy/Home Medications Allergies/Adverse Reactions: Allergies Allergy/AdvReac Type Severity Reaction Status Date / Time amoxicillin Allergy Hives Verified 09/05/18 19:03 pineapple Allergy See Comment Verified 09/05/18 19:03 PMH/Surg Hx/FS Hx/Imm Hx Endocrine/Hematology History: Denies: Hx Anticoagulant Therapy, Hx Blood Disorders, Hx Diabetes, Hx Thyroid Disease Cardiovascular History: Denies: Hx Hypertension Respiratory History: Denies: Hx Asthma, Hx Chronic Obstructive Pulmonary Disease (COPD) GI History: Reports: Hx Gall Bladder Disease - questionable Denies: Hx Crohn's Disease, Hx Diverticulosis, Hx Gastroesophageal Reflux Disease, Hx Hiatal Hernia, Hx Irritable Bowel, Hx Ulcer History: Reports: Other Problems/Disorders - ovarian cyst Denies: Hx Kidney Infection, Hx Kidney Stones, Hx Renal Disease Musculoskeletal History: Denies: Hx Back Problems Psychiatric History: Reports: Hx Anxiety - panic attacks, Hx of Violent Episodes Against Others Denies: Hx Eating Disorder Infectious Disease History: No Infectious Disease History: Denies: Hx Clostridium Difficile, Hx Hepatitis, Hx Human Immunodeficiency Virus (HIV), Hx of Known/Suspected MRSA, Hx Shingles, Hx Tuberculosis, Hx Known/ Suspected VRE, Hx Known/Suspected VRSA, History Other Infectious Disease, Traveled Outside the [place] in Last 30 Days - Family History Known Family History: Positive: Diabetes, Respiratory Disease - asthma (sister) Negative: Cardiac Disease - Social History Alcohol Use: None Substance Use Type: Reports: None Hx Tobacco Use: No Smoking Status (MU): Never Smoked Tobacco Have You Smoked in the Last Year: No Review of Systems Negative: Fever Negative: Chest Pain Negative: Shortness Of Breath Positive: Abdominal Pain, Vomiting, Diarrhea, Nausea All Other Systems Reviewed And Are Negative: Yes Physical Exam Triage Information Reviewed: Yes Vital Signs On Initial Exam: Initial Vitals Temp Pulse Resp BP Pulse Ox 96.8 F 78 16 143/82 100 09/05/18 19:02 09/05/18 19:02 09/05/18 19:02 09/05/18 19:02 09/05/18 19:02 Vital Signs Reviewed: Yes Appearance: Positive: Well-Appearing Skin: Positive: Warm, Dry Head/Face: Positive: Normal Head/Face Inspection Eyes: Positive: Normal, EOMI, RUTH, Conjunctiva Clear, Conjunctiva Inflammed - after crying bilteral. Negative: Discharge ENT: Positive: Pharynx normal Respiratory/Lung Sounds: Positive: Clear to Auscultation, Breath Sounds Present Cardiovascular: Positive: Normal, RRR Abdomen Description: Positive: Soft, Other: - tenderness RLQ pain, neg obturator. Negative: McBurney's Point Tenderness Bowel Sounds: Positive: Present Musculoskeletal: Positive: Normal Neurological: Positive: Normal Psychiatric: Positive: Normal Diagnostics - Vital Signs Vital Signs Temp Pulse Resp BP Pulse Ox 09/05/18 19:02 96.8 F 78 16 143/82 100 - Laboratory Result Diagrams: 09/05/18 19:51 09/05/18 19:51 Lab Statement: Any lab studies that have been ordered have been reviewed, and results considered in the medical decision making process. Re-Evaluation - Re-Evaluation First Eval Re-Evaluation Time: 21:36 Comment: patient states just wants to leave, does not want to wait fot CT. says is more concerned about left eye. She states that the real reason she went to urgent care is bc she develop pus drainage from left eye today. is not a contact or glasses wear. At the moment eye injected conjunctiva bilaterally as she she crying but will treat as a conjunctivitis with Polytrim. Discuss risks and benefits of leaving and patient state would like to leave and return if pain gets worst. GIGU Course/Dx - Course Course Of Treatment: 22-year-old female presents with right lower quadrant for the the past couple months. She states in the past 2 days it has gotten worse. She admits to nausea vomiting diarrhea. No urinary symptoms. No abnormal vaginal discharge. Patient is sexually active. No fevers. Pain does not move anywhere. Pain is constant. Has no medical conditions. she does have a history of ovarian cysts and states that it feels different. no cough, chest pain or sob. On exam tenderness right lower quadrant. neg mcburney point tenderness. White blood count normal. CRP normal. Ultrasound pelvic normal. patient was drinking for CT when she started to cry and wanted to leave. discussed with patient results and she states she is really here for her left eye. She noticed some pus like drainage and erythema today. No change in vision. Does not wear glasses or contacts. On exam pupils njected but that is due to crying. no pussy drainage is noted at the moment but will treatas conjunctivitis with Polytrim. Discuss risks and benefits of staying and patient decided to leave. Told if develop fever or worsening symptoms to return. Told to otherwise follow up primary. Patient understands agrees with plan. - Diagnoses Differential Diagnoses - Female: Appendicitis, Ovarian Cyst, Urinary Tract Infection Provider Diagnoses: Abdominal pain, Conjunctivitis Discharge - Sign-Out/Discharge Documenting (check all that apply): Patient Departure Patient Received Moderate/Deep Sedation with Procedure: No - Discharge Plan Condition: Good Disposition: HOME Patient Education Materials: Abdominal Pain (ED), Conjunctivitis (ED) Referrals: Lori Paz MD [Primary Care Provider] - Additional Instructions: Place 1 drop in eye four times a day for 7 days Wash hands after touching eye take tyenlol or ibuprofen as needed for pain Follow up with primary Return to ED if develop any new or worsening symptoms - Billing Disposition and Condition Condition: GOOD Disposition: Home
[2018-09-05 20:06] LABS: ABS Basophils 0 10^3/ul (0-0.2); ABS Eosinophils 0.1 10^3/ul (0-0.6); ABS Lymphocytes 2.6 10^3/ul (1.0-4.8); ABS Monocytes 0.6 10^3/ul (0-0.8); ABS Neutrophils 5.4 10^3/ul (1.5-7.7); ABS Nucleated RBC 0 10^3/ul; Eosinophil % 1.4 %; Hematocrit 42 % (33-41); Hemoglobin 13.7 g/dL (12.0-16.0); Lymphocyte % 29.8 %; Mean Corpuscular HGB Conc 33 g/dL (31-36); Mean Corpuscular Hemoglobin 27 pg (27-31); Mean Corpuscular Volume 83 fL (80-97); Mean Platelet Volume 9.1 fL (7.4-10.4); Nucleated Red Blood Cells % 0; Platelet Count 292 10^3/uL (150-450); Red Blood Count 4.99 10^6 /uL (3.70-4.87); Red Cell Distribution Width 16 % (10.5-15); White Blood Count 8.7 10^3/uL (3.5-10.8)
[2018-09-05 20:16] LABS: ALT 13 U/L (7-52); AST 11 U/L (13-39); Albumin 4.6 g/dL (3.2-5.2); Albumin/Globulin Ratio 1.5 (1-3); Alkaline Phosphatase 68 U/L (34-104); Anion Gap 7 mmol/L (2-11); BUN/Creatinine Ratio 10.9 (8-20); Blood Urea Nitrogen 7 mg/dL (6-24); C Reactive Protein 4.14 mg/L (<8.01); CO2 Carbon Dioxide 25 mmol/L (22-32); Calcium 9.7 mg/dL (8.6-10.3); Chloride 109 mmol/L (101-111); EGFR African American 143.1 (>60); EGFR Non-African American 118.3 (>60); Globulin 3.1 g/dL (2-4); Glucose 93 mg/dL (70-100); Potassium 3.8 mmol/L (3.5-5.0); Sodium 141 mmol/L (135-145); Total Protein 7.7 g/dL (6.4-8.9)
[2018-09-05 20:22] LABS: HCG Pregnancy 0.81 mIU/mL
[2018-09-05] MEDS ORDERED: Iohexol 300* (CONTRAST) 10 ML SDV IV ONE (20:46)
[2018-09-05] MEDS ORDERED: Polymyx/Trimethoprim OPTH* 10 ML BTL LEFT EYE ONE (21:35)
[2018-09-05 22:04] VITALS: BP 120/92
== END 2018-09-05 22:03 | disposition home or self-care (01) ==
LOC: ED 19:01
DX: R10.31 Right lower quadrant pain (principal); H10.9 Unspecified conjunctivitis; Z88.0 Allergy status to penicillin; Z87.42 Personal history of other diseases of the female genital tract; R11.2 Nausea with vomiting, unspecified; R19.7 Diarrhea, unspecified
CPT/HCPCS: 36415; 76856; 80053; 83690; 84702; 85025; 86140; 96361; 96374; 99282; J1885

== ENCOUNTER 2018-09-08 19:08 | Emergency (ER) | payer OTHER ==
[2018-09-08 19:22] VITALS: BP 126/90
== END 2018-09-08 20:06 | disposition left against medical advice (07) ==
LOC: ED 19:08
DX: Z53.21 Procedure and treatment not carried out due to patient leaving prior to being seen by health care provider (principal)

== ENCOUNTER 2019-03-01 12:41 | Emergency (ER) | payer OTHER ==
[2019-03-01 13:12] VITALS: BP 110/68
--- NOTE | 2019-03-01 13:42 | UC ---
Skin Complaint HPI - HPI Summary HPI Summary: 23 year old female with no PMH presents with itchy, burning rash on b/l neck posterior since October. no new soaps/ lotions. Using hypoallergetic lotion without improvement. - No other symptoms, no pain, no spreading. Boyfriend without symptoms. - NO other skin conditions, no prior episodes - History of Current Complaint Chief Complaint: UCSkin Time Seen by Provider: 03/01/19 13:25 Stated Complaint: SKIN ISSUE Hx Obtained From: Patient Hx Last Menstrual Period: sporadic ?: No Onset/Duration: Sudden Onset, Lasting Weeks, Still Present Skin Exposure Onset/Duration: Weeks Ago - since October Current Severity: None Pain Intensity: 0 Pain Scale Used: 0-10 Numeric Location: Discrete - b/l neck posterior Aggravating Factor(s): Nothing Alleviating Factor(s): Nothing Associated Signs & Symptoms: Negative: Drainage, Bruising, Tenderness, Red Streaks, Joint Swelling - Allergy/Home Medications Allergies/Adverse Reactions: Allergies Allergy/AdvReac Type Severity Reaction Status Date / Time amoxicillin Allergy Hives Verified 03/01/19 13:07 pineapple Allergy See Comment Verified 03/01/19 13:07 PMH/Surg Hx/FS Hx/Imm Hx Previously Healthy: Yes Other History Of: Negative For: Anticoagulant Therapy - Surgical History Surgical History: None - Family History Known Family History: Positive: Diabetes, Respiratory Disease - asthma (sister) Negative: Cardiac Disease - Social History Alcohol Use: Occasionally Substance Use Type: Marijuana Substance Use Comment - Amount & Last Used: occasional Smoking Status (MU): Never Smoked Tobacco Have You Smoked in the Last Year: No Household Exposure Type: Cigarettes - Immunization History Most Recent Influenza Vaccination: season Most Recent Pneumonia Vaccination: not indicated Vaccination Up to Date: Yes Review of Systems All Other Systems Reviewed And Are Negative: Yes Skin: Positive: Rash. Negative: Bruising Respiratory: Negative: Shortness Of Breath, Cough Motor: Negative: Decreased ROM Musculoskeletal: Negative: Arthralgia, Decreased ROM, Edema, Myalgia Is Patient Immunocompromised?: No Physical Exam Triage Information Reviewed: Yes Appearance: Well-Appearing, No Pain Distress, Well-Nourished Vital Signs: Initial Vital Signs Temp 97.4 F 03/01/19 13:07 Pulse 65 03/01/19 13:07 Resp 16 03/01/19 13:07 BP 110/68 03/01/19 13:07 Pulse Ox 97 03/01/19 13:07 Eyes: Positive: Conjunctiva Clear ENT: Positive: Hearing grossly normal Musculoskeletal: Positive: ROM Intact - cervical, No Edema - cervical Neurological Exam: Normal Psychological Exam: Normal Skin: Positive: Rashes - b/l posterior neck wrapping to midline, ~ 3cm in width , multiple ~ 3mm large cicrular areas, raised plaques with distinct borders, + scaling Course/Dx - Course Course Of Treatment: Rash: - Follow up with primary physician for further evaluation/ treatment- You should follow up with a group managing director within the next month for further evaluation - Antifungal cream for treatment for possible fungal infection, although no definitive diagnosis given today - Blood work drawn today, follow up with primary for results - Differential Diagnoses - Skin Complaint Differential Diagnoses: Urticaria - Diagnoses Provider Diagnosis: Rash Discharge ED - Sign-Out/Discharge Documenting (check all that apply): Patient Departure All imaging exams completed and their final reports reviewed: No Studies - Discharge Plan Condition: Good Disposition: HOME Prescriptions: Clotrimazole 1% TOPICAL (NF) [Lotrimin 1% TOPICAL (NF)] 10 gm EX BID #1 tube Patient Education Materials: Acute Rash (ED) Referrals: Lori Paz MD [Primary Care Provider] - Additional Instructions: - Follow up with primary physician for further evaluation/ treatment- You should follow up with a group managing director within the next month for further evaluation - Antifungal cream for treatment for possible fungal infection, although no definitive diagnosis given today - Blood work drawn today, follow up with primary for results - Billing Disposition and Condition Condition: GOOD Disposition: Home
[2019-03-01 19:24] LABS: Hematocrit 43 % (35-47); Mean Corpuscular HGB Conc 33 g/dL (31-36); Mean Corpuscular Hemoglobin 27 pg (27-31); Mean Corpuscular Volume 82 fL (80-97); Mean Platelet Volume 9.5 fL (7.4-10.4); Platelet Count 297 10^3/uL (150-450); Red Blood Count 5.21 10^6 /uL (3.70-4.87); Red Cell Distribution Width 15 % (10-15); White Blood Count 7.7 10^3/uL (3.5-10.8)
[2019-03-01 19:45] LABS: Albumin 4.6 g/dL (3.2-5.2); Calcium 9.9 mg/dL (8.6-10.3); Potassium 4.1 mmol/L (3.5-5.0); Total Bilirubin 0.4 mg/dL (0.2-1.0)
[2019-03-01 19:50] LABS: BUN/Creatinine Ratio 15.4 (8-20); EGFR African American 139.2 (>60); EGFR Non-African American 115.1 (>60); TSH (Thyroid Stimulating Horm) 3.45 mcIU/mL (0.34-5.60); Total Protein 7.6 g/dL (6.4-8.9)
[2019-03-01 19:51] LABS: Albumin/Globulin Ratio 1.5 (1-3)
== END 2019-03-01 14:23 | disposition home or self-care (01) ==
LOC: UCEAST 12:41
DX: R21 Rash and other nonspecific skin eruption (principal); Z88.0 Allergy status to penicillin; Z91.018 Allergy to other foods
CPT/HCPCS: 36415; 80053; 84443; 85027; 99212; G0463

== ENCOUNTER 2019-07-20 17:44 | Emergency (ER) | payer OTHER ==
[2019-07-20 18:17] VITALS: BP 122/90
--- NOTE | 2019-07-20 20:58 | UC ---
Respiratory Complaint HPI - HPI Summary HPI Summary: Patient complains of 2 weeks of cough. Had sore throat initially that is now resolved. No fever, nausea. No ear pain. - History of Current Complaint Chief Complaint: UCGeneralIllness Stated Complaint: RESP COMPLAINT Time Seen by Provider: 07/20/19 20:30 Hx Obtained From: Patient Hx Last Menstrual Period: 2 weeks Onset/Duration: Gradual Onset, Lasting Weeks, Still Present Timing: Constant Severity Initially: Mild Severity Currently: Mild Pain Intensity: 5 Pain Scale Used: 0-10 Numeric Character: Cough: Nonproductive Aggravating Factors: Nothing Alleviating Factors: Nothing Associated Signs And Symptoms: Positive: URI. Negative: Dyspnea, Fever, Chills , Wheezing, Nasal Congestion - Allergies/Home Medications Allergies/Adverse Reactions: Allergies Allergy/AdvReac Type Severity Reaction Status Date / Time amoxicillin Allergy Hives Verified 07/20/19 18:17 pineapple Allergy See Comment Verified 07/20/19 18:17 Home Medications: Home Medications Etonogestrel [Nexplanon] 68 mg IMPLANT DAILY 10/27/17 [History Confirmed ] Benzonatate CAP* [Tessalon CAP*] 1 - 2 cap PO TID PRN #30 cap 07/20/19 [Rx] predniSONE 20 mg TAB [Deltasone 20 MG TAB*] 40 mg PO DAILY #10 tab 07/20/19 [Rx] PMH/Surg Hx/FS Hx/Imm Hx Previously Healthy: Yes Other History Of: Negative For: Anticoagulant Therapy - Surgical History Surgical History: None - Family History Known Family History: Positive: Diabetes, Respiratory Disease - asthma (sister) Negative: Cardiac Disease - Social History Alcohol Use: Occasionally Substance Use Type: Marijuana Substance Use Comment - Amount & Last Used: occasional Smoking Status (MU): Never Smoked Tobacco Have You Smoked in the Last Year: No Household Exposure Type: Cigarettes - Immunization History Most Recent Influenza Vaccination: 2014/2015 season Most Recent Pneumonia Vaccination: not indicated Vaccination Up to Date: Yes Review of Systems All Other Systems Reviewed And Are Negative: Yes Constitutional: Positive: Negative ENT: Positive: Sore Throat Respiratory: Positive: Cough Cardiovascular: Positive: Negative Gastrointestinal: Positive: Negative Physical Exam Triage Information Reviewed: Yes Appearance: Well-Appearing, No Pain Distress, Well-Nourished Vital Signs: Initial Vital Signs Temp 99.2 F 07/20/19 18:10 Pulse 91 07/20/19 18:10 Resp 16 07/20/19 18:10 BP 122/90 07/20/19 18:10 Pulse Ox 100 07/20/19 18:10 Vital Signs Reviewed: Yes Eyes: Positive: Conjunctiva Clear ENT: Positive: Hearing grossly normal, Pharynx normal, TMs normal Neck: Positive: Supple, Nontender, No Lymphadenopathy Respiratory Exam: Normal Cardiovascular Exam: Normal Abdomen Description: Positive: Soft Musculoskeletal: Positive: No Edema Neurological: Positive: Alert Psychological: Positive: Age Appropriate Behavior Skin: Negative: Rashes Respiratory Course/Dx - Course Course Of Treatment: PATIENT LIKELY WITH RESIDUAL COUGH FROM A RESOLVING URI. NO INDICATION FOR ANTIBIOTICS AT PRESENT. WILL TRY A SHORT BURST OF PREDNISONE TO HELP WITH AIRWAY INFLAMMATION AND COUGH MEDICINE. FOLLOW-UP IF NEEDED. - Differential Dx/Diagnosis Provider Diagnosis: Acute upper respiratory infection Discharge ED - Sign-Out/Discharge Documenting (check all that apply): Patient Departure All imaging exams completed and their final reports reviewed: No Studies - Discharge Plan Condition: Stable Disposition: HOME Prescriptions: Benzonatate CAP* [Tessalon CAP*] 1 - 2 cap PO TID PRN #30 cap PRN Reason: Cough predniSONE 20 mg TAB [Deltasone 20 MG TAB*] 40 mg PO DAILY #10 tab Patient Education Materials: Upper Respiratory Infection (ED) Forms: *Gen. Provider Communication Referrals: Lori Paz MD [Primary Care Provider] - If Needed Additional Instructions: YOUR SYMPTOMS ARE LIKELY VIRALLY MEDIATED AND ALREADY SEEM TO BE BETTER OVERALL. NO INDICATION FOR ANTIBIOTICS AT PRESENT. REST, HYDRATE, OTC MEDS NEEDED. WILL TREAT WITH PREDNISONE TO HELP WITH AIRWAY INFLAMMATION AND COUGH MEDICINE. SEEK FOLLOW-UP IF YOU ARE NOT CONTINUING TO IMPROVE OVER THE NEXT 1-2 WEEKS. - Billing Disposition and Condition Condition: STABLE Disposition: Home
== END 2019-07-20 20:59 | disposition home or self-care (01) ==
LOC: UCEAST 17:44
DX: J06.9 Acute upper respiratory infection, unspecified (principal); Z88.0 Allergy status to penicillin; Z91.018 Allergy to other foods
CPT/HCPCS: 99212; G0463; J7512